=== PATIENT | male | born 1950 | race Caucasian/White ===

== ENCOUNTER 2019-03-08 12:17 | Inpatient (IN) | payer MEDICARE, BC ==
[~2019-03-08] VITALS: Ht 182.9 cm; Wt 114.0 kg
[2019-03-08 13:24] LABS: BASOPHILS ABSOLUTE AUTO 0.02 K/mm3 (0.00-0.23); BASOPHILS PERCENT AUTO 0 % (0-2); EOSINOPHILS PERCENT AUTO 2 % (0-6); Hematocrit 40.8 % (37.0-53.0); Hemoglobin 12.2 g/dL (13.5-17.5); IMMATURE GRAN ABSOLUTE AUTO 0.01 K/mm3 (0.00-0.10); IMMATURE GRAN PERCENT AUTO 0 % (0-1); LYMPHOCYTES ABSOLUTE AUTO 1.04 K/mm3 (0.84-5.20); LYMPHOCYTES PERCENT AUTO 17 % (21-46); MONOCYTES ABSOLUTE AUTO 0.53 K/mm3 (0.16-1.47); MONOCYTES PERCENT AUTO 9 % (4-13); Mean Corpuscular HGB 32.7 pg (26.0-34.0); Mean Corpuscular HGB Conc 29.9 g/dL (31.5-36.5); Mean Corpuscular Volume 109 fL (80-100); NEUTROPHILS ABSOLUTE AUTO 4.44 K/mm3 (1.96-9.15); NEUTROPHILS PERCENT AUTO 72 % (41-73); Platelet Count 127 K/mm3 (150-400); RDW Coefficient Variation 14.3 % (11.7-14.2); RDW Standard Deviation 57.9 fL (35.1-46.3); Red Blood Cell Count 3.73 M/mm3 (4.30-5.90); White Blood Cell Count 6.14 K/mm3 (4.00-11.30)
[2019-03-08] MEDS ORDERED: ALBU90OI INH (13:41)
[2019-03-08] MEDS ORDERED: ALPR.5 PO (13:41)
[2019-03-08] MEDS ORDERED: DULERA 200 MCG/13 GM INH (13:41)
[2019-03-08] MEDS ORDERED: Aspirin EC81 MG PO (13:42)
[2019-03-08] MEDS ORDERED: FUROSEMIDE PO (13:42)
[2019-03-08 13:46] LABS: Troponin I 0.024 ng/mL (0.000-0.040)
[2019-03-08 13:50] LABS: Alanine Aminotransfer (ALT/SGP 28 U/L (12-78); Albumin, Blood 3.5 g/dL (3.4-5.0); Alk Phos 59 U/L (50-136); Aspartate Aminotrans (AST/SGOT 25 U/L (12-37); Bilirubin, Total 0.4 mg/dL (0.1-1.0); Blood Urea Nitrogen 23 mg/dL (8-24); Bun/Creatinine Ratio 21.3 (12.0-20.0); Chloride, Blood 93 mmol/L (98-108); Creatinine, Blood 1.08 mg/dL (0.60-1.20); Globulin, Blood 3.6 g/dL (2.2-4.0); Glomerular Filtration Rate >60 (60-); Glucose, Blood 85 mg/dL (70-99); Potassium, Blood 4.6 mmol/L (3.5-5.5); Sodium, Blood 139 mmol/L (136-145); Total Protein, Blood 7.1 g/dL (6.4-8.2)
[2019-03-08 13:52] LABS: Anion Gap Unable to Calculate mmol/L (6-16)
[2019-03-08 13:53] LABS: CO2, Blood >45 mmol/L (21-32)
[2019-03-08] MEDS ORDERED: Prinivil10 MG PO (14:23)
[2019-03-08] MEDS ORDERED: Voltaren100 GM TOP (14:23)
[2019-03-08] MEDS ORDERED: QUIN5 PO (14:49)
[2019-03-08] MEDS ORDERED: ALBU2.5V5 NEB (14:52)
[2019-03-08] MEDS ORDERED: Percocet 10-321 EACH PO (15:46)
[2019-03-08 16:35] LABS: PO2 Arterial 65.4 mmHg (80-100); pH Blood Arterial 7.32 (7.35-7.45)
[2019-03-08 16:36] LABS: PCO2 Arterial 90.4 mmHg (35-45)
--- NOTE | 2019-03-08 21:25 | NUR ---
Report recieved from RORO Farris at [id number].
--- NOTE | 2019-03-09 02:07 | NUR ---
Pt admitted to PCU 3 at 2138 via [facility] from ED with Brenton RN at bedside. Pt alert and oriented, responds to questions appropriately, with pt. Pt transferred from [facility] to bed as SBA, minimal assistanced needed. Pt stated GARCIAS and increased SOB with ambulation. Pt appeared with initial weak gait that improved. See admission assessment for detailed systems assessment. BIPAP in place and pt tolerating well. Currently sleeping at this time. Will continue to monitor. Call light in reach. Able to make needs known.
[2019-03-09 04:24] LABS: BASOPHILS ABSOLUTE AUTO 0.03 K/mm3 (0.00-0.23); BASOPHILS PERCENT AUTO 1 % (0-2); EOSINOPHILS ABSOLUTE AUTO 0.12 K/mm3 (0.00-0.68); EOSINOPHILS PERCENT AUTO 2 % (0-6); Hematocrit 39.9 % (37.0-53.0); Hemoglobin 11.9 g/dL (13.5-17.5); IMMATURE GRAN PERCENT AUTO 0 % (0-1); LYMPHOCYTES ABSOLUTE AUTO 1.28 K/mm3 (0.84-5.20); LYMPHOCYTES PERCENT AUTO 22 % (21-46); MONOCYTES ABSOLUTE AUTO 0.57 K/mm3 (0.16-1.47); MONOCYTES PERCENT AUTO 10 % (4-13); Mean Corpuscular HGB 32.3 pg (26.0-34.0); Mean Corpuscular HGB Conc 29.8 g/dL (31.5-36.5); Mean Corpuscular Volume 108 fL (80-100); Mean Platelet Volume 9.9 fL (9.1-12.4); NEUTROPHILS ABSOLUTE AUTO 3.96 K/mm3 (1.96-9.15); NEUTROPHILS PERCENT AUTO 66 % (41-73); Platelet Count 114 K/mm3 (150-400); RDW Coefficient Variation 14.2 % (11.7-14.2); RDW Standard Deviation 56.8 fL (35.1-46.3); Red Blood Cell Count 3.68 M/mm3 (4.30-5.90); White Blood Cell Count 5.96 K/mm3 (4.00-11.30)
[2019-03-09 04:42] LABS: Blood Urea Nitrogen 26 mg/dL (8-24); Bun/Creatinine Ratio 20.2 (12.0-20.0); Chloride, Blood 94 mmol/L (98-108); Creatinine, Blood 1.29 mg/dL (0.60-1.20); Glomerular Filtration Rate 58 (60-); Glucose, Blood 87 mg/dL (70-99); Magnesium, Blood 2.6 mg/dL (1.6-2.4); Potassium, Blood 3.8 mmol/L (3.5-5.5); Sodium, Blood 139 mmol/L (136-145)
[2019-03-09 04:50] LABS: Anion Gap Unable to Calculate mmol/L (6-16); CO2, Blood >45 mmol/L (21-32)
[2019-03-09 06:02] LABS: PCO2 Arterial 92.1 mmHg (35-45); PO2 Arterial 81.7 mmHg (80-100)
--- NOTE | 2019-03-09 06:12 | NUR ---
CRITICAL VALUE Critical co2 of 92.1 at 0605. Called MD Gaines at 0607. Placed pt back on BIPAP. No changes in mentation noted. awaiting call back from Dr. Gaines at this time.
--- NOTE | 2019-03-09 06:30 | NUR ---
Shift Summary Pt with VSS this shift, pt placed on BIPAP at approx 2230 and was compliant with BIPAP until approx 0245. Education provided to pt regarding BIPAP treatment and retention of CO2. pt declined BIPAP and placed on 3L NC. ABG drawn and with critical results valued. No changes in mentation from time of arrival on unit. Pt remains alert and oriented, but with sporatic movements and thought processes. Saigal notified and made aware, BIPAP placed back on pt with further education given, repeat ABG to be drawn in 1 hour. Pt able to amb to bathroom with SBA. Afib rate controlled in the 110's, no need for further rate control medications this shift. Will continue to monitor and update as needed.
[2019-03-09 08:22] LABS: PCO2 Arterial 77 mmHg (35-45); PO2 Arterial 72 mmHg (80-100); pH Blood Arterial 7.37 (7.35-7.45)
--- NOTE | 2019-03-09 18:40 | NUR ---
END OF SHIFT; PT RESTED COMFORTABLY USING BIPAP FOR MAJORITY OF SHIFT. DID NOT EAT LUNCH TODAY BUT DID WAKE FOR DINNER. HE HAD PLEASANT AFFECT FOR MOST OF THE DAY. BECOMING ANGRY DURING DINNER AND YELLING AT STAFF. PT DID NOT REMEMBER SLEEPING MOST OF DAY AND TOLD STAFF THAT HE HAD BEEN AWAKE AND NO ONE HAD BEEN IN HIS ROOM. THIS RN TRIED TO EXPLAIN TO PATIENT THAT HE WAS ASLEEP BUT HE WOULD NOT BELIEVE HER. PT BECOMES INCREASINGLY ANGRY AND TOWER CLIMBER CHASTITY GOES TO ROOM TO SPEAK WITH PATIENT. THIS RN IS ABLE TO GIVE PATIENT HIS OXYCODONE AND HIS XARELTO AFTER EXPLAINING TO PT ABOUT THE REASON FOR XARELTO USE. PT IS CURRENTLY LAYING ON BED USING NASAL CANNULA THIS RN WILL CONTINUE TO MONITOR THIS PATIENT UNTIL REPORT AND HAND OFF TO NOC SHIFT RN.
--- NOTE | 2019-03-10 00:35 | NUR ---
Assumed care approx 1914. Pt off BIPAP at time of shift change. This RN sat with Pt and educated pt on need for continued BIPAP treatment. This RN explained to pt that BIPAP is improving co2 retention. Pt stated understanding and compliantly placed BIPAP back on. Pt has been on BIPAP since approx 2129. Pt has been sleeping this shift. VSS. No apparent sign of distress. Pt mentating more clearly than previous night. Pt states "I don't feel fuzzy in the head anymore". Alert and oriented, answering questions appropriately. Pt is following commands and instructions compliantly this shift. See shift assessment for detailed assessment. Will continue to monitor. Pain within proportion at this time.
--- NOTE | 2019-03-10 01:18 | NUR ---
Pt off BIPAP at 0115 for break. Back on NC.
[2019-03-10 05:28] LABS: PCO2 Arterial 64.9 mmHg (35-45); pH Blood Arterial 7.42 (7.35-7.45)
[2019-03-10 05:32] LABS: BASOPHILS ABSOLUTE AUTO 0.01 K/mm3 (0.00-0.23); BASOPHILS PERCENT AUTO 0 % (0-2); EOSINOPHILS ABSOLUTE AUTO 0.12 K/mm3 (0.00-0.68); EOSINOPHILS PERCENT AUTO 2 % (0-6); Hematocrit 39.7 % (37.0-53.0); Hemoglobin 12.1 g/dL (13.5-17.5); IMMATURE GRAN ABSOLUTE AUTO 0.01 K/mm3 (0.00-0.10); IMMATURE GRAN PERCENT AUTO 0 % (0-1); LYMPHOCYTES ABSOLUTE AUTO 1.16 K/mm3 (0.84-5.20); LYMPHOCYTES PERCENT AUTO 20 % (21-46); MONOCYTES ABSOLUTE AUTO 0.43 K/mm3 (0.16-1.47); MONOCYTES PERCENT AUTO 8 % (4-13); Mean Corpuscular HGB 32.2 pg (26.0-34.0); Mean Corpuscular HGB Conc 30.5 g/dL (31.5-36.5); Mean Corpuscular Volume 106 fL (80-100); Mean Platelet Volume 9.8 fL (9.1-12.4); NEUTROPHILS ABSOLUTE AUTO 4.03 K/mm3 (1.96-9.15); NEUTROPHILS PERCENT AUTO 70 % (41-73); Platelet Count 126 K/mm3 (150-400); RDW Coefficient Variation 14.1 % (11.7-14.2); RDW Standard Deviation 54.7 fL (35.1-46.3); Red Blood Cell Count 3.76 M/mm3 (4.30-5.90); White Blood Cell Count 5.76 K/mm3 (4.00-11.30)
[2019-03-10 05:57] LABS: Albumin, Blood 3.2 g/dL (3.4-5.0); Anion Gap 1 mmol/L (6-16); Blood Urea Nitrogen 26 mg/dL (8-24); Bun/Creatinine Ratio 22.6 (12.0-20.0); CO2, Blood 42 mmol/L (21-32); Calcium, Blood 9.2 mg/dL (8.5-10.1); Chloride, Blood 96 mmol/L (98-108); Creatinine, Blood 1.15 mg/dL (0.60-1.20); Glomerular Filtration Rate >60 (60-); Glucose, Blood 84 mg/dL (70-99); Phosphorus, Blood 3.8 mg/dL (2.5-4.9); Potassium, Blood 4.1 mmol/L (3.5-5.5); Sodium, Blood 139 mmol/L (136-145)
--- NOTE | 2019-03-10 06:12 | NUR ---
Shift Summary Pt with no acute changes this shift. VSS. Denies SOB, denies CP/pressure. Pt wore BIPAP for approx 7 hours thus far this shift. ABG improved. Pt asleep throughout much of this shift. Up to bathroom twice with minimal assistance. Uses call light appropriately. No events on tele.
--- NOTE | 2019-03-10 11:19 | NUR ---
ECHOCARDIOGRAM COMPLETED
--- NOTE | 2019-03-10 18:18 | NUR ---
END OF SHIFT; PT COOPERATIVE WITH CARE TODAY. SLEEP STUDY ORDERED FOR TONIGHT. NO BIPAP. PT HAS PLEASANAT AFFECT TODAY AND CO2 PER ABG IS MUCH REDUCED INTO THE 67 RANGE. HE IS ABLE TO AMBULATE TO BATHROOM WITHOUT ASSIST. ONLY NEEDS HELP UNHOOKING LIINES AND MONITOR OR BIPAP. SPOUSE AT BEDSIDE TODAY. ADMITS TO GIVING PATIENT A XANAX YESTERDAY AND EXPRESSES THAT IS WHY HE WAS SO SOMNOLENT. TEACHING IS DONE AND NOTIFIED OF EVENT FROM YESTERDAY. PT STATES HIS LEGS ARE NOT NUMB NOW AND HAVE NOT HAD THIS MUCH FEELING FOR A LONG TIME. HE USES BIPAP DURING DAY FOR SHORT PERIODS OF TIME. ECHO DONE AND ULTRASOUND IS DONE FOR DVT'S WITH NO DVT'S FOUND PER TECH. WILL CONTINUE TO MONITOR THIS PATIENT UNTIL REPORT AND HAND OFF TO NOC SHIFT RN.
--- NOTE | 2019-03-11 03:35 | NUR ---
SLEEP STUDY IN PROGRESS PT AWAKE, WEARING 3L NC. BIPAP AT BEDSIDE, NOT BEING USED FOR SLEEP STUDY. PT STOOD AT BEDSIDE FOR URINAL USE W/ DESAT TO 84%. PT SITTING UP AT EDGE OF BED DEEP BREATHING W/ RETURN TO SPO2 > 92%. PT ASSISTED BACK TO LAYING POSITION. BLE ELEVATED IN BED. WILL CONTINUE TO MONITOR AND PROVIDE CARE.
[2019-03-11 05:18] LABS: PO2 Arterial 69.9 mmHg (80-100); pH Blood Arterial 7.31 (7.35-7.45)
[2019-03-11 05:19] LABS: PCO2 Arterial 74.6 mmHg (35-45)
--- NOTE | 2019-03-11 05:29 | NUR ---
SHIFT SUMMARY PT A&O X4, CALM AND COOPERATIVE. PT WEARING 3L NC FOR SLEEP STUDY THIS SHIFT. SLEEP STUDY & ABG DRAW BY RT NOW COMPLETE. PT PLACED ON BIPAP FIO2 30%. MONITOR SHOWS AFIB W/ BBB, HR 110-130, AVERAGING HR 110'S. WILL CONTINUE TO MONITOR AND PROVIDE CARE UNTIL REPORT OFF TO DAY SHIFT RN.
[2019-03-11 06:05] LABS: BASOPHILS ABSOLUTE AUTO 0.02 K/mm3 (0.00-0.23); BASOPHILS PERCENT AUTO 0 % (0-2); EOSINOPHILS ABSOLUTE AUTO 0.12 K/mm3 (0.00-0.68); EOSINOPHILS PERCENT AUTO 2 % (0-6); Hematocrit 42.1 % (37.0-53.0); Hemoglobin 13.1 g/dL (13.5-17.5); IMMATURE GRAN ABSOLUTE AUTO 0.01 K/mm3 (0.00-0.10); IMMATURE GRAN PERCENT AUTO 0 % (0-1); LYMPHOCYTES ABSOLUTE AUTO 0.95 K/mm3 (0.84-5.20); LYMPHOCYTES PERCENT AUTO 13 % (21-46); MONOCYTES ABSOLUTE AUTO 0.47 K/mm3 (0.16-1.47); MONOCYTES PERCENT AUTO 6 % (4-13); Mean Corpuscular HGB 32.7 pg (26.0-34.0); Mean Corpuscular HGB Conc 31.1 g/dL (31.5-36.5); Mean Corpuscular Volume 105 fL (80-100); Mean Platelet Volume 9.9 fL (9.1-12.4); NEUTROPHILS ABSOLUTE AUTO 5.89 K/mm3 (1.96-9.15); NEUTROPHILS PERCENT AUTO 79 % (41-73); Platelet Count 134 K/mm3 (150-400); RDW Coefficient Variation 14.2 % (11.7-14.2); RDW Standard Deviation 54.9 fL (35.1-46.3); Red Blood Cell Count 4.01 M/mm3 (4.30-5.90); White Blood Cell Count 7.46 K/mm3 (4.00-11.30)
[2019-03-11 06:34] LABS: Albumin, Blood 3.6 g/dL (3.4-5.0); Anion Gap 3 mmol/L (6-16); Blood Urea Nitrogen 26 mg/dL (8-24); Bun/Creatinine Ratio 22.6 (12.0-20.0); CO2, Blood 38 mmol/L (21-32); Calcium, Blood 9.5 mg/dL (8.5-10.1); Chloride, Blood 100 mmol/L (98-108); Creatinine, Blood 1.15 mg/dL (0.60-1.20); Glomerular Filtration Rate >60 (60-); Glucose, Blood 87 mg/dL (70-99); Phosphorus, Blood 4.2 mg/dL (2.5-4.9); Potassium, Blood 4.2 mmol/L (3.5-5.5); Sodium, Blood 141 mmol/L (136-145)
--- NOTE | 2019-03-11 08:15 | NUR ---
PT PLEASANT COOP A/O. DENIES PAIN. RESP EASY, UNLABORED. ON 15 L HI FLOW N.C. TALKING MUCH. ENCOURAGED TO REST AND TALK LESS. H/R REG, NO MURMER NOTED. PER TELE: NSR AT 63. LUNGS LIGHTLY WHEEZY EXPIRATION. ON 15 L HI FLOW N/C. REWP EASY, UNLABORED. BT X4 LAST BM YEST. VOIDS PER URINAL. BED IN LOW POSITION, CALL LITE IN REACH, CALLS APPROP
--- NOTE | 2019-03-11 09:00 | NUR ---
TELE CALLED. STATES PT BEEN CREEPING UP H/R. WAS 120'S NOW 135-140. HAS BEEN SLOWLY GOING UP SINCE 8AM. MEDICATING SOON. WILL CONTINUE MONITOR
--- NOTE | 2019-03-11 10:30 | NUR ---
DR WEBBER NOTIFIED US TO PLACE BIPAP AGAIN. PT AGREED. RT CALLED TO REFIT MASK. DONE.
--- NOTE | 2019-03-11 10:39 | NUR ---
PT BACK TO LOW 120'S
--- NOTE | 2019-03-11 11:36 | NUR ---
CARDIAC CONSULT CALLED IN TO DR POWELL.
[2019-03-11 11:57] LABS: CHOL/HDL RATIO 3.1; Cholesterol 161 mg/dL (50-200); HDL Cholesterol 52 mg/dL (>39); LDL/HDL RATIO 1.7; Low Density Lipoprotein Chol 88 mg/dL (0-110); Triglycerides 106 mg/dL (30-160); Very Low Density Lipoprot Chol 21 mg/dL (6-32)
--- NOTE | 2019-03-11 19:18 | NUR ---
PT QUITE PLEASANT TODAY. CARDIAC DR INCREASED AND CHANGED SOME MEDS TO DAY. BEEN ON BIPAP MUCH OF DAY. ON 3L O3 N/C TO EAT ETC. NO OTHER CONCERNS AT THIS TIME. BED IN LOW POSITION, CALL LITE IN REACH, CALLS APPRIOP
[2019-03-12 04:09] LABS: BASOPHILS ABSOLUTE AUTO 0.02 K/mm3 (0.00-0.23); BASOPHILS PERCENT AUTO 0 % (0-2); EOSINOPHILS ABSOLUTE AUTO 0.12 K/mm3 (0.00-0.68); EOSINOPHILS PERCENT AUTO 2 % (0-6); Hematocrit 39.8 % (37.0-53.0); Hemoglobin 12.4 g/dL (13.5-17.5); IMMATURE GRAN ABSOLUTE AUTO 0.01 K/mm3 (0.00-0.10); IMMATURE GRAN PERCENT AUTO 0 % (0-1); LYMPHOCYTES ABSOLUTE AUTO 1.13 K/mm3 (0.84-5.20); LYMPHOCYTES PERCENT AUTO 20 % (21-46); MONOCYTES ABSOLUTE AUTO 0.53 K/mm3 (0.16-1.47); MONOCYTES PERCENT AUTO 9 % (4-13); Mean Corpuscular HGB 32.9 pg (26.0-34.0); Mean Corpuscular HGB Conc 31.2 g/dL (31.5-36.5); Mean Corpuscular Volume 106 fL (80-100); Mean Platelet Volume 9.7 fL (9.1-12.4); NEUTROPHILS ABSOLUTE AUTO 3.95 K/mm3 (1.96-9.15); NEUTROPHILS PERCENT AUTO 69 % (41-73); Platelet Count 128 K/mm3 (150-400); RDW Coefficient Variation 14.3 % (11.7-14.2); RDW Standard Deviation 55.5 fL (35.1-46.3); Red Blood Cell Count 3.77 M/mm3 (4.30-5.90); White Blood Cell Count 5.76 K/mm3 (4.00-11.30)
[2019-03-12 04:37] LABS: Albumin, Blood 3.1 g/dL (3.4-5.0); Anion Gap 3 mmol/L (6-16); Blood Urea Nitrogen 25 mg/dL (8-24); Bun/Creatinine Ratio 23.1 (12.0-20.0); CO2, Blood 39 mmol/L (21-32); Calcium, Blood 9.2 mg/dL (8.5-10.1); Chloride, Blood 100 mmol/L (98-108); Creatinine, Blood 1.08 mg/dL (0.60-1.20); Glomerular Filtration Rate >60 (60-); Glucose, Blood 81 mg/dL (70-99); Phosphorus, Blood 4.2 mg/dL (2.5-4.9); Potassium, Blood 3.9 mmol/L (3.5-5.5); Sodium, Blood 142 mmol/L (136-145)
--- NOTE | 2019-03-12 05:17 | NUR ---
SHIFT SUMMARY PT A&O X4. PT IN BED WEARING BIPAP MAJORITY OF NIGHT, 3L NC WHEN NOT WEARING BIPAP. MONITOR SHOWS AFIB, HR 100-130. VSS. WILL CONTINUE TO MONITOR AND PROVIDE CARE UNTIL REPORT OFF TO DAY SHIFT RN.
[2019-03-12 05:30] LABS: PCO2 Arterial 66.5 mmHg (35-45); PO2 Arterial 66.7 mmHg (80-100)
--- NOTE | 2019-03-12 07:52 | NUR ---
AM NOTE. ASSUMED CARE OF PT APROX 0700. PT WAS ADMITTED FOR AFIB RVR AND RESP FAILURE ON BIPAP AND NC. PT IS A&Ox4 AND SBA TO THE SIDE OF THE BED TO VOID. PT IS ON NC AT 3 L WITH O2 IN THE 90'S. PT IS BEING DIG LOADED AND IS ON HIS LAST DOSE OF DIG THIS AM. PT IS TAKING PO CARDIZEM FOR RATE CONTROL WELL. PT'S VS STABLE AT THIS TIME. PT'S L/S DIM T/O. PT'S BLE ARE RED,WARM TO TOUCH WITH 1+ PITTING EDEMA NOTED. CALL LIGHT IN REACH, BED IS LOCKED AND LOW WILL CONTINUE TO MONITOR.
--- NOTE | 2019-03-12 18:31 | NUR ---
SHIFT SUMMARY. NO ACUTE CHANGES NOTED THIS SHIFT. PT HAS BEEN STABLE ON 3 L NC WITH O2 SATS >90%. PT HAS C/O OF SEVERE PAIN AND HAS BEEN MEDICATED PER EMAR WITH GOOD RESULTS. PT'S HAS BEEN AT THE BEDSIDE MOST OF THE DAY. THIS RN CALLED THE PROVIDER AND ASKED IF THE COULD BRING THE PT'S ESSENTIAL OILS FROM HOME TO HELP WITH THE PT'S ITCHING/PSORIASIS ON HIS SCALP. PROVIDER STATED HE WAS OKAY WITH THIS. NURSE NOTIFY WAS PLACED. PT'S VS HAVE BEEN STABLE T/O SHIFT. PT IS IN AFIB WITH CURRENT RATES IN THE 80'S-90'S PER BROADCAST SYSTEMS ENGINEER. PT HAS BEEN ABLE TO STAND AT THE BEDSIDE TO VOID. CALL LIGHT IN REACH, BED IS LOCKED AND LOW WILL CONTINUE TO MONITOR UNTIL REPORT IS GIVEN TO ONCOMING RN.
[2019-03-13 04:08] LABS: Anion Gap 0 mmol/L (6-16); Blood Urea Nitrogen 32 mg/dL (8-24); CO2, Blood 44 mmol/L (21-32); Chloride, Blood 96 mmol/L (98-108); Creatinine, Blood 1.23 mg/dL (0.60-1.20); Glomerular Filtration Rate >60 (60-); Glucose, Blood 84 mg/dL (70-99); Magnesium, Blood 2.1 mg/dL (1.6-2.4); Potassium, Blood 4.3 mmol/L (3.5-5.5); Sodium, Blood 140 mmol/L (136-145)
--- NOTE | 2019-03-13 06:25 | NUR ---
SHIFT SUMMARY PT HAS REMAINED AOX4 THROUGHOUT SHIFT. VSS. PLEASANT AND COOPERATIVE WITH CARE. PT CONTINUES TO USE URINAL AT BEDSIDE INDEPENDENTLY. O2 SATS HAVE REMAINED >90% ON 3L VIA NASAL CANNULA OR ON VISION BIPAP WITH SETTINGS OF 20/10 AND 30% FIO2. BIPAP REMAINED IN PLACE FOR APPROXIMATELY 4 HOURS LAST NIGHT WHILE PATIENT SLEPT. PT REPORTS THAT HOME O2 USE IS 3-4L. MEDICATED MULTIPLE TIMES FOR GENERALIZED CHRONIC PAIN THAT DECREASED WITH ORDERED MEDICATIONS. HEART RHYTHM REMAINS IN ATRIAL FIBRILLATION WITH A RATE IN THE 80'S-90'S. NO OTHER CHANGES NOTED FROM INITIAL ASSESSMENT. WILL CONTINUE TO MONITOR AND REPORT TO ONCOMING SHIFT RN. BED IN LOW POSITION, CALL LIGHT IN REACH.
--- NOTE | 2019-03-13 07:32 | NUR ---
AM NOTE. ASSUMED CARE OF PT APROX 0700, PT IS A&Ox4 AND IND TO THE BSC IN THE ROOM. PT WAS ADMITTED FOR AFIB RVR AND RESP FAILURE. CURRENTLY THE PT IS ON 3L NC WHICH IS HIS HOME DOSE. PT HAS NOT NEEDED THE BIPAP SO FAR THIS SHIFT. PT IS CURRENTLY IN AFIB IN THE 80'S-90'S PER BREWING TECHNICIAN. PT'S BP IS STABLE AT 104/68. PT'S BLE ARE RED AND WARM TO THE TOUCH WITH TRACE EDEMA NOTED, THIS HAS IMPROVED FROM YESTERDAY. L/S ARE DIM T/O, PT BECOMES SOB WITH ACTIVITY, HOWVEVER PT STATES THIS HAS IMPROVED WELL. PT DENIES ANY CHEST PAIN/PRESSURE OR N/V AT THIS TIME. CALL LIGHT IN REACH, BED IS LOCKED AND LOW WILL CONTINUE TO MONITOR.
[2019-03-13 14:49] LABS: Mean Platelet Volume 9.3 fL (9.1-12.4); Platelet Count 146 K/mm3 (150-400)
[2019-03-13 15:11] LABS: International Normalized Ratio 1.02; Prothrombin Time Results 10.8 Sec (9.7-11.5)
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
--- NOTE | 2019-03-13 18:22 | NUR ---
SHIFT SUMMARY. NO ACUTE CHANGES NOTED THIS SHIFT. PT'S VS HAVE BEEN STABLE T/O SHIFT. PT HAS BEEN STABLE ON 3L NC. PT HAS BEEN ABLE TO STAND AT THE BEDSIDE AND VOID WITH THE URINAL CLEAR YELLOW URINE. PT'S AT THE BEDSIDE MOST OF THE DAY. UPDATE ON PT'S CONDITION AND EDUCATION WAS PROVIDED TO THE PT AND ABOUT MEDICATIONS, HOME CARE, AND WHAT TO EXPECT WITH THE ANGIO THAT IS TENTATIVLY PLANNED FOR TOMORROW. PT IS TO HAVE STANDING WEIGHTS DAILY. PER DR. BOO IF PT'S WEIGHT IS STABLE TODAY AND TOMORROW PT IS ABLE TO D/C HOME AFTER ANGIO. CALL LIGHT IN REACH, BED IS LOCKED AND LOW WILL CONTINUE TO MONITOR UNTIL REPORT IS GIVEN TO ONCOMING RN.
[2019-03-14 03:53] LABS: Anion Gap 1 mmol/L (6-16); Blood Urea Nitrogen 31 mg/dL (8-24); Bun/Creatinine Ratio 26.5 (12.0-20.0); CO2, Blood 41 mmol/L (21-32); Calcium, Blood 8.5 mg/dL (8.5-10.1); Chloride, Blood 96 mmol/L (98-108); Creatinine, Blood 1.17 mg/dL (0.60-1.20); Glomerular Filtration Rate >60 (60-); Glucose, Blood 86 mg/dL (70-99); Potassium, Blood 4.3 mmol/L (3.5-5.5); Sodium, Blood 138 mmol/L (136-145)
--- NOTE | 2019-03-14 06:32 | NUR ---
SHIFT SUMMARY PT HAS REMAINED AOX4 THROUGHOUT SHIFT. VSS. PLEASANT AND COOPERATIVE WITH CARE. PT CONTINUES TO BE INDEPENDENT IN ROOM WITH URINAL USE AT BEDSIDE. O2 SATS HAVE REMAINED >90% ON 3L VIA NASAL CANNULA. PT WORE BIPAP FOR APPROXIMATELY 3 HOURS TOTAL LAST NIGHT WHILE SLEEPING. MEDICATED MULTIPLE TIMES FOR GENERALIZED PAIN THAT IS CHRONIC; REPORTS DECREASE IN PAIN WITH ORDERED MEDICATIONS. PT REMAINS IN AFIB WITH CONTROLLED RATE IN THE 80-90'S. EDUCATION PROVIDED ON ANGIOGRAM PROCEDURE- PT APPEARS TO HAVE SOME ANXIETY ABOUT PROCEDURE AND WHAT TO EXPECT. WHEN EXPLAINING POTENTIAL INTERVENTIONS THAT COULD BE UTILIZED WITH HEART CATH, PT REPORTS THAT "HE DOESN'T WANT ANY OF THAT STUFF IN HIS BODY". WHEN ASKED TO CLARIFY HIS MEANING, PT REPORTS THAT HE "DOES NOT WANT ANY STENTS, BUT MIGHT BE OK WITH A BALLOON". HEPARIN DRIP CONTINUES TO INFUSE AND IS MANAGED PER PHARMACY. PT HAS HAD ONLY SIPS OF WATER SINCE MIDNIGHT. NO OTHER CHANGES NOTED FROM INITIAL ASSESSMENT. WILL CONTINUE TO MONITOR AND REPORT TO ONCOMING SHIFT RN. BED IN LOW POSITION, CALL LIGHT IN REACH.
--- NOTE | 2019-03-14 08:54 | NUR ---
AM NOTE. ASSUMED CARE OF PT APROX 0700, PT IS A&Ox4 AND SBA/IND IN THE ROOM. PT WAS SEEN BY CARDIOLOGY PROVIDER THIS AM, CONSENT FOR ANGIO WAS SIGNED. PT STATED HE HAD CONCERNS ABOUT PLACING A CARDIAC STENT IF HE NEEDED ONE. EDUCATION WAS PROVIDED TO PT ABOUT CARDIAC STENTS, PT STATED HE WANTED TO TALK TO HIS WHEN SHE CAME IN. PT IS NPO SINCE MIDNIGHT FOR THIS PROCEDURE. PT'S HEPARIN GTT IS RUNNING AT ORDERED RATE. PT'S VS STABLE AT THIS TIME. CALL LIGHT IN REACH, BED IS LOCKED AND LOW WILL CONTINUE TO MONITOR.
--- NOTE | 2019-03-14 10:02 | NUR ---
PT UPDATE... PT HAS BEEN ON THE BSC FOR APROX 1 HOUR. PT STATED THAT HE IS CONSTIPATED AND UNABLE TO HAVE A BM AT THIS TIME. PT WAS STRAINING SO HARD HE HAD GIVEN HIMSELF A BLOODY NOSE. PT WAS EDUCATED ON NOT STRAINING SO HARD DUE TO THE HEPARIN GTT HE IS CURRENTLY ON. PT STATED HIS UNDERSTANDING. PROVIDER WAS CALLED AND ORDERS OBTAINED FOR BOWEL CARE PROTOCOL.
--- NOTE | 2019-03-14 19:10 | NUR ---
pt resting review of care with nursing will review advance care planning with pt after physican sees him tomorrow
--- NOTE | 2019-03-14 19:45 | NUR ---
ASSUMED CARE PT CARE ASSUMED AT APPROXIMATELY 1915. AOX4, VSS. PT IS RESTING WITH HOB AT APPROXIMATELY 15 DEGREES ELEVATION POST ANGIO WITH R GROIN SITE. GROIN SITE IS NOTED TO HAVE MICHAEL DRESSING WITH CLEAR OPSITE. SMALL AMOUNT OF DRY BLOOD NOTED TO CLEAR DRESSING WITH NO BLOOD NOTED ON MICHAEL DRESSING. NO BRUISING, HEMATOMA, OR SWELLING NOTED TO OR AROUND SITE. PT DENIES PAIN TO SITE AT REST OR UPON PALPATION. EDUCATION PROVIDED ON POST PROCEDURE CARE AND REDUCTION OF MOVEMENT AND STRAINING- PT VERBALIZES UNDERSTANDING. INFORMED PT THAT WE CAN DO TRIAL AMBULATION AT 1999 AND MONITOR GROIN SITE- PT AGREES TO THIS PLAN. WILL CONTINUE TO MONITOR. CALL LIGHT IN REACH.
[2019-03-15 05:07] LABS: Hematocrit 42.3 % (37.0-53.0); Hemoglobin 12.9 g/dL (13.5-17.5); Mean Corpuscular HGB 32.1 pg (26.0-34.0); Mean Corpuscular HGB Conc 30.5 g/dL (31.5-36.5); Mean Corpuscular Volume 105 fL (80-100); Mean Platelet Volume 9.7 fL (9.1-12.4); Platelet Count 141 K/mm3 (150-400); RDW Coefficient Variation 14.2 % (11.7-14.2); RDW Standard Deviation 55.1 fL (35.1-46.3); Red Blood Cell Count 4.02 M/mm3 (4.30-5.90); White Blood Cell Count 6.61 K/mm3 (4.00-11.30)
[2019-03-15 05:29] LABS: Anion Gap 0 mmol/L (6-16); Blood Urea Nitrogen 29 mg/dL (8-24); Bun/Creatinine Ratio 26.4 (12.0-20.0); CO2, Blood 44 mmol/L (21-32); Calcium, Blood 8.9 mg/dL (8.5-10.1); Chloride, Blood 96 mmol/L (98-108); Glomerular Filtration Rate >60 (60-); Glucose, Blood 82 mg/dL (70-99); Potassium, Blood 4.1 mmol/L (3.5-5.5); Sodium, Blood 140 mmol/L (136-145)
--- NOTE | 2019-03-15 05:42 | NUR ---
SHIFT SUMMARY PT HAS REMAINED AOX4 THROUGHOUT SHIFT. VSS. PLEASANT AND COOPERATIVE WITH CARE. O2 SATS HAVE REMAINED >90% ON 3L VIA NASAL CANNULA OR ON VISION BIPAP @30% FIO2. PT CONTINUES TO AMBULATE WITH STANDBY ASSIST TO USE URINAL AT BEDSIDE. GROIN SITE HAS REMAINED UNCHANGED SINCE START OF SHIFT. EDUCATION ABOUT POST PROCEDURE MOVEMENT REITERATED AND PT CONTINUES TO ADHERE. SOME REDNESS AND SKIN CHAFING NOTED TO CHERELLE AREA NEAR SCROTUM; PT STATES THIS IS ITCHING, BUT ITCH DECREASED WITH APPLICATION OF BARRIER CREAM. NO OTHER CHANGES NOTED FROM INITIAL ASSESSMENT. WILL CONTINUE TO MONITOR AND REPORT TO ONCOMING SHIFT RN. BED IN LOW POSITION, CALL LIGHT IN REACH.
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
[2019-03-15] MEDS ORDERED: ATORVASTATIN CA20 MG PO (12:35)
[2019-03-15] MEDS ORDERED: DILTIAZEM 24HR120 M1 PO (12:36)
[2019-03-15] MEDS ORDERED: METO2.5 PO (12:37)
[2019-03-15] MEDS ORDERED: METO50ER PO (12:37)
[2019-03-15] MEDS ORDERED: XARELTO20 MG PO (12:38)
--- NOTE | 2019-03-15 15:30 | NUR ---
DISCHARGE ORDERS PROVIDED TO PT AND . EDUCATION PROVIDED ABOUT MEDICATIONS, DISCHARGE INSTRUCTIONS, AND O2 USE. LINCAIRE IN TO INFORM PT HOW TO USE TRILOGY. ALL QUESTIONS ANSWERED. PT TAKEN OUT BY WHEELCHAIR.
== END 2019-03-15 15:38 | disposition home or self-care (01) | DRG 286 ==
LOC: ER 12:17 → PCU 15:46 → ERHOLD 15:46 → PCU 21:46
PROVIDERS: Emergency Medicine; Family Medicine; Hospitalist; Internal Medicine Interventional Cardiology; Nurse Practitioner Acute Care; ADMIT Internal Medicine
PROC: 5A09457 Assistance with Respiratory Ventilation, 24-96 Consecutive Hours, Continuous Positive Airway Pressure (ICD-10-PCS; principal; 2019-03-08)
PROC: B205YZZ Plain Radiography of Left Heart using Other Contrast (ICD-10-PCS; 2019-03-14)
PROC: 4A023N8 Measurement of Cardiac Sampling and Pressure, Bilateral, Percutaneous Approach (ICD-10-PCS; 2019-03-14)
DX: I11.0 Hypertensive heart disease with heart failure (principal); I50.21 Acute systolic (congestive) heart failure; J96.22 Acute and chronic respiratory failure with hypercapnia; J96.21 Acute and chronic respiratory failure with hypoxia; J44.1 Chronic obstructive pulmonary disease with (acute) exacerbation; N17.9 Acute kidney failure, unspecified; E87.2 Acidosis; I65.21 Occlusion and stenosis of right carotid artery; I48.91 Unspecified atrial fibrillation; Z99.81 Dependence on supplemental oxygen; M54.5 Low back pain; G89.29 Other chronic pain; I27.20 Pulmonary hypertension, unspecified; E66.01 Morbid (severe) obesity due to excess calories; Z68.34 Body mass index [BMI] 34.0-34.9, adult; Z91.19 Patient's noncompliance with other medical treatment and regimen; F41.1 Generalized anxiety disorder; F17.210 Nicotine dependence, cigarettes, uncomplicated; G47.33 Obstructive sleep apnea (adult) (pediatric); K59.00 Constipation, unspecified
CPT/HCPCS: 36415; 36600; 71046; 80048; 80053; 80061; 80069; 82803; 83735; 83880; 84443; 84484; 85025; 85027; 85049; 85610; 85730; 93005; 93010; 93306; 93460; 93970; 94640; 94660; 94761; 94762; 96374; 96375; 96376; 99152; 99153; 99285-25; C1760; C1769; J1120; J1160; J1644; J1940; J2250; J3010; J7030; J7050; Q9967

== ENCOUNTER 2020-06-10 00:35 | Day surgery (SDC) | payer MEDICARE, BC ==
[~2020-06-10 00:35] MED LIST: ALBU2.5V5 NEB; ALBU90OI INH; ALPR.5 PO; ATORVASTATIN CA20 MG PO; Aspirin EC81 MG PO; DILTIAZEM 24HR120 M1 PO; DULERA 200 MCG/13 GM INH; FUROSEMIDE PO; METO2.5 PO; METO50ER PO; Percocet 10-321 EACH PO; Prinivil10 MG PO; QUIN5 PO; Voltaren100 GM TOP; XARELTO20 MG PO
== END 2020-06-10 23:30 | disposition home or self-care (01) ==
LOC: WOUND 00:35
DX: I87.2 Venous insufficiency (chronic) (peripheral) (principal); I73.9 Peripheral vascular disease, unspecified; I50.9 Heart failure, unspecified; E78.5 Hyperlipidemia, unspecified; I25.10 Atherosclerotic heart disease of native coronary artery without angina pectoris; F17.210 Nicotine dependence, cigarettes, uncomplicated; Z88.0 Allergy status to penicillin; Z79.899 Other long term (current) drug therapy
CPT/HCPCS: G0463

== ENCOUNTER 2020-06-17 00:32 | Day surgery (SDC) | payer MEDICARE, BC | END 2020-06-17 23:08 | disposition home or self-care (01) | LOC: WOUND 00:32 | DX: I87.2 Venous insufficiency (chronic) (peripheral) (principal); I73.9 Peripheral vascular disease, unspecified; L97.821 Non-pressure chronic ulcer of other part of left lower leg limited to breakdown of skin; I50.9 Heart failure, unspecified; E78.5 Hyperlipidemia, unspecified; Z79.899 Other long term (current) drug therapy | CPT/HCPCS: G0463 ==

== ENCOUNTER 2020-07-02 08:38 | Day surgery (SDC) | payer MEDICARE, BC | END 2020-07-02 12:00 | disposition home or self-care (01) | LOC: WOUND 08:38 | DX: L97.811 Non-pressure chronic ulcer of other part of right lower leg limited to breakdown of skin (principal); S01.80XD Unspecified open wound of other part of head, subsequent encounter; S01.00XD Unspecified open wound of scalp, subsequent encounter; I87.2 Venous insufficiency (chronic) (peripheral); I50.9 Heart failure, unspecified; I48.91 Unspecified atrial fibrillation; E78.5 Hyperlipidemia, unspecified; G89.29 Other chronic pain; M54.5 Low back pain; I25.10 Atherosclerotic heart disease of native coronary artery without angina pectoris; I49.9 Cardiac arrhythmia, unspecified; Z88.0 Allergy status to penicillin; Z79.82 Long term (current) use of aspirin; Z79.01 Long term (current) use of anticoagulants; Z79.899 Other long term (current) drug therapy; Z51.5 Encounter for palliative care; X58.XXXD Exposure to other specified factors, subsequent encounter | CPT/HCPCS: G0463 ==

== ENCOUNTER 2020-07-09 02:06 | Day surgery (SDC) | payer MEDICARE, BC | END 2020-07-09 23:13 | disposition home or self-care (01) | LOC: WOUND 02:06 | DX: R60.0 Localized edema (principal); L97.819 Non-pressure chronic ulcer of other part of right lower leg with unspecified severity; L98.499 Non-pressure chronic ulcer of skin of other sites with unspecified severity; I87.2 Venous insufficiency (chronic) (peripheral); I73.9 Peripheral vascular disease, unspecified; I11.0 Hypertensive heart disease with heart failure; I50.20 Unspecified systolic (congestive) heart failure; E78.5 Hyperlipidemia, unspecified; G89.29 Other chronic pain; M54.5 Low back pain; I25.10 Atherosclerotic heart disease of native coronary artery without angina pectoris; I42.9 Cardiomyopathy, unspecified; F41.9 Anxiety disorder, unspecified; I48.0 Paroxysmal atrial fibrillation; F17.210 Nicotine dependence, cigarettes, uncomplicated; Z79.51 Long term (current) use of inhaled steroids; Z79.01 Long term (current) use of anticoagulants; Z79.82 Long term (current) use of aspirin; Z79.899 Other long term (current) drug therapy; Z88.0 Allergy status to penicillin; Z51.5 Encounter for palliative care | CPT/HCPCS: G0463 ==

== ENCOUNTER 2020-11-29 10:15 | Day surgery (SDC) | payer MEDICARE, BC | END 2020-11-29 22:49 | disposition home or self-care (01) | LOC: WOUND 10:15 | DX: L97.822 Non-pressure chronic ulcer of other part of left lower leg with fat layer exposed (principal); I87.2 Venous insufficiency (chronic) (peripheral); I50.9 Heart failure, unspecified; E78.5 Hyperlipidemia, unspecified; I48.91 Unspecified atrial fibrillation; I25.10 Atherosclerotic heart disease of native coronary artery without angina pectoris; F17.200 Nicotine dependence, unspecified, uncomplicated; Z88.0 Allergy status to penicillin | CPT/HCPCS: G0463 ==

== ENCOUNTER 2020-12-06 00:38 | Day surgery (SDC) | payer MEDICARE, BC | END 2020-12-06 22:53 | disposition home or self-care (01) | LOC: WOUND 00:38 | DX: R60.9 Edema, unspecified (principal); I87.2 Venous insufficiency (chronic) (peripheral); L97.922 Non-pressure chronic ulcer of unspecified part of left lower leg with fat layer exposed; I48.91 Unspecified atrial fibrillation; E78.5 Hyperlipidemia, unspecified; I25.10 Atherosclerotic heart disease of native coronary artery without angina pectoris; I50.9 Heart failure, unspecified; I51.7 Cardiomegaly; I35.0 Nonrheumatic aortic (valve) stenosis | CPT/HCPCS: 93306; A9270; G0463 ==

== ENCOUNTER 2023-01-13 12:26 | Inpatient (IN) | payer MEDICARE, BC ==
[~2023-01-13] VITALS: Ht 182.9 cm; Wt 102.8 kg
[2023-01-13] VITALS (29 sets, daily range): BP systolic 92–133; BP diastolic 57–102
[2023-01-13 12:59] LABS: PO2 Arterial 73.2 mmHg (80-100); pH Blood Arterial 7.36 (7.35-7.45)
[2023-01-13 13:01] LABS: PCO2 Arterial 78.5 mmHg (35-45)
[2023-01-13 13:56] LABS: Alanine Aminotransfer (ALT/SGP 8 U/L (12-78); Albumin, Blood 0.9 g/dL (3.4-5.0); Albumin/Globulin Ratio 0.6 (0.8-1.8); Alk Phos 16 U/L (50-136); Anion Gap 1 mmol/L (6-16); Aspartate Aminotrans (AST/SGOT 8 U/L (12-37); Bilirubin, Total 0.2 mg/dL (0.1-1.0); Blood Urea Nitrogen 8 mg/dL (8-24); Bun/Creatinine Ratio 28.5 (12.0-20.0); CO2, Blood 18 mmol/L (21-32); Calcium, Blood <5.0 mg/dL (8.5-10.1); Chloride, Blood 136 mmol/L (98-108); Creatinine, Blood 0.28 mg/dL (0.60-1.20); Globulin, Blood 1.4 g/dL (2.2-4.0); Glomerular Filtration Rate 128 (60-); Glucose, Blood 56 mg/dL (70-99); Magnesium, Blood 2.5 mg/dL (1.6-2.4); Potassium, Blood 1.7 mmol/L (3.5-5.5); Sodium, Blood 155 mmol/L (136-145); Total Protein, Blood 2.3 g/dL (6.4-8.2)
[2023-01-13 14:20] LABS: Calcium, Ionized (POC) 1.13 mmol/L (1.10-1.46); Chloride (POC) 96 mmol/L (98-108); Creatinine (POC) 0.9 mg/dL (0.8-1.3); Glucose (ISTAT POC) 114 mg/dL (70-99); Hemoglobin (POC) 10.2 g/dL (13.5-17.5); Sodium (POC) 145 mmol/L (135-148); Total CO2 (POC) 39 mmol/L (21-32)
[2023-01-13 14:40] LABS: Influenza A, PCR NEGATIVE (NEGATIVE); Influenza B, PCR NEGATIVE (NEGATIVE); Resp Syncytial Virus, PCR NEGATIVE (NEGATIVE); SARS-Cov-2 (COVID-19) PCR, MMC NEGATIVE (NEGATIVE)
[2023-01-13 15:19] LABS: Source, Urine Foley catheter
[2023-01-13 15:24] LABS: Appearance, Urine Clear (Clear); Bilirubin, Urine Neg (Neg); Blood, Urine 1+ (Neg); Color, Urine Amber (P-Yellow); Glucose Qualitative, Urine Neg (Neg); Ketones, Urine Neg (Neg); Leukocyte Esterase, Urine Neg (Neg); Nitrite, Urine Neg (Neg); Protein, Urine 2+ (Neg); Urobilinogen, Urine 1+ (Normal)
[2023-01-13 15:29] LABS: BASOPHILS ABSOLUTE AUTO 0.01 K/mm3 (0.00-0.23); BASOPHILS PERCENT AUTO 0 % (0-2); EOSINOPHILS ABSOLUTE AUTO 0.01 K/mm3 (0.00-0.68); EOSINOPHILS PERCENT AUTO 0 % (0-6); Hematocrit 31.7 % (37.0-53.0); Hemoglobin 9.4 g/dL (13.5-17.5); IMMATURE GRAN ABSOLUTE AUTO 0.06 K/mm3 (0.00-0.10); IMMATURE GRAN PERCENT AUTO 1 % (0-1); LYMPHOCYTES ABSOLUTE AUTO 0.46 K/mm3 (0.84-5.20); LYMPHOCYTES PERCENT AUTO 5 % (21-46); MONOCYTES ABSOLUTE AUTO 0.42 K/mm3 (0.16-1.47); MONOCYTES PERCENT AUTO 5 % (4-13); Mean Corpuscular HGB 31.8 pg (26.0-34.0); Mean Corpuscular HGB Conc 29.7 g/dL (31.5-36.5); Mean Platelet Volume 9.7 fL (9.1-12.4); NEUTROPHILS PERCENT AUTO 89 % (41-73); Platelet Count 178 K/mm3 (150-400); RDW Coefficient Variation 12.9 % (11.7-14.2); Red Blood Cell Count 2.96 M/mm3 (4.30-5.90); White Blood Cell Count 8.86 K/mm3 (4.00-11.30)
[2023-01-13 15:31] LABS: Mean Corpuscular Volume 107 fL (80-100)
[2023-01-13 15:38] LABS: Bacteria Few /hpf; Calcium Oxalate Crystals Few /hpf; Red Blood Cells, Urine 0-2 /hpf (0-2); Squamous Epithelial Cells Rare /hpf (Few); White Blood Cells, Urine 0-2 /hpf (0-5)
[2023-01-13 15:56] LABS: Alanine Aminotransfer (ALT/SGP 22 U/L (12-78); Albumin, Blood 2.4 g/dL (3.4-5.0); Albumin/Globulin Ratio 0.6 (0.8-1.8); Alk Phos 49 U/L (50-136); Aspartate Aminotrans (AST/SGOT 23 U/L (12-37); Bilirubin, Total 0.5 mg/dL (0.1-1.0); Blood Urea Nitrogen 19 mg/dL (8-24); CO2, Blood 39 mmol/L (21-32); Chloride, Blood 110 mmol/L (98-108); Creatinine, Blood 0.76 mg/dL (0.60-1.20); Globulin, Blood 3.7 g/dL (2.2-4.0); Glomerular Filtration Rate 94 (60-); Glucose, Blood 122 mg/dL (70-99)
[2023-01-13 15:58] LABS: Anion Gap Unable to Calculate mmol/L (6-16); Sodium, Blood 145 mmol/L (136-145); Total Protein, Blood 6.1 g/dL (6.4-8.2)
[2023-01-13 16:00] LABS: Calcium, Blood 7.9 mg/dL (8.5-10.1); Potassium, Blood 3.9 mmol/L (3.5-5.5)
--- NOTE | 2023-01-13 16:15 | NUR ---
INITIAL ASSESSMENT PATIENT ARRIVED TO UNIT AT 1555. PATIENT INTUBATED. PATIENT ON VERSED AT 2 MG/ HOUR; INCREASED TO 4 MG/ HOUR. PATIENT PLACED ON PROPOFOL AT 20 MCG/ KG/ MINUTE. PATIENT RESPONDING TO NOXIOUS STIMULI. PATIENT AFEBRILE. REPORTS PATIENT HAS CHRONIC BACK PAIN. PATIENT ON VENT AT AC 20, TV 400, PEEP 8 AND 80% FIO2. RLL COARSE; ALL OTHER LUNG LOBES CLEAR TO AUSCULTATION. ETT 8.0 AND 26 AT TEETH. PATIENT IN BBB WITH PACS. HR 70S TO 80S. SBP 90S TO 120S. 2+ EDEMA NOTED TO BLES; ARE DISCOLORED AND SCALING OFF. FEET PULSES DOPPLERED. ABDOMEN MODERATELY DISTENDED, SOFT, NORMOACTIVE BOWEL SOUNDS NOTED. REPORTS HAD BM THIS AM. OG TO LIS. MARTINI IN PLACE DRAINING ERIC COLORED URINE. SCABS SCATTERED TO FOREHEAD AND NOSE. BUTTOCKS REDDENED BUT BLANCHEABLE. PURPURA NOTED TO BUES. PSORIASIS TO SCALP (FIRST REPORTED BY ). BED LOW, CALL LIGHT IN REACH. WILL CONTINUE TO MONITOR PATIENT FREQUENTLY THROUGHOUT SHIFT.
--- NOTE | 2023-01-13 17:28 | NUR ---
WASTED 98.3 MLS OF VERSED WITH GABRIELE PERSAUD RN.
--- NOTE | 2023-01-13 19:06 | NUR ---
SHIFT SUMMARY PATIENT REMAINED INTUBATED AND SEDATED. PATIENT APPEARS COMFORTABLE. PATIENT REMAINS RESPONDING TO NOXIOUS STIMULI. PATIENT HAS REMAINED AFEBRILE. FIO2 DECREASED FROM 80% TO 70%. HR AND BP REMAIN STABLE. NO BM. 150 MLS OF ERIC COLORED URINE OUT FROM MARTINI THIS SHIFT. NO CHANGES TO SKIN NOTED. NS INFUSING AT 125 MLS/ HOUR, PROPOFOL AT 20 MCG/ KG/ MINUTE AND FENTANYL DRIP AT 25 MCG/ HOUR. ALL ADMIT DATA COMPLETED EXCEPT MED LIST. , GLEN HELPED WITH PATIENT HISTORY. PATIENT APPEARS WITHOUT PAIN OR DISTRESS AT THIS TIME. BED LOW, CALL LIGHT IN REACH. REPORT HAS BEEN GIVEN TO ASSUMING TRUST MAIL CLERK NURSE.
--- NOTE | 2023-01-13 21:05 | NUR ---
ASSUMED CARE PT APPEARS TO BE A&O TO SELF, PLACE, SITUATION. PT COMMUNICATES WELL THROUGH NODDING/SHAKING HEAD. PT IS EXTREMELY ANXIOUS AND HAS SEVERE ITCHING ON HIS HEAD FROM PSORIASIS (PER REPORT/PT NODDING WHEN ASKED IF HEAD IS ITCHING). MAP >65; SPO2 >92% ON VENTILATOR (SEE SHIFT ASSESSMENT FOR SETTINGS). CONTINUOUS FENTANYL DRIP, PROPOFOL, AND NS INFUSING PER ORDER (SEE FLOWSHEET). MARTINI CATHETER PATENT AND DRAINING TO GRAVITY.
[2023-01-13] MEDS ORDERED: ALBU8HFA2 INH (23:57)
[2023-01-14] VITALS (95 sets, daily range): BP systolic 70–153; BP diastolic 41–137
--- NOTE | 2023-01-14 01:31 | NUR ---
UPDATE PT HR HAS BEEN TRENDING UPWARDS WHILE SUSTAINING IN THE 100-120'S (W/ OCCASIONAL BUMPS INTO THE 150'S). DR TAO INITIALLY CALLED W/ ORDERS FOR A 500ML BOLUS OF NS. PT HR CONTINUED TO TREND UPWARDS AND DR GODINEZ CALLED W/ ORDERS FOR 2.5 METOPROLOL. PT REMAINS IN THE 90-130'S (SBP NOW IN THE 90'S); DR GODINEZ CALLED AGAIN W/ ORDERS TO WAIT FOR 30 MINUTES AND CALL BACK IF PT REMAINS TACHYCARDIC.
[2023-01-14 03:49] LABS: BASOPHILS ABSOLUTE AUTO 0.01 K/mm3 (0.00-0.23); BASOPHILS PERCENT AUTO 0 % (0-2); EOSINOPHILS ABSOLUTE AUTO 0.04 K/mm3 (0.00-0.68); EOSINOPHILS PERCENT AUTO 1 % (0-6); Hematocrit 28.5 % (37.0-53.0); Hemoglobin 8.8 g/dL (13.5-17.5); IMMATURE GRAN ABSOLUTE AUTO 0.02 K/mm3 (0.00-0.10); IMMATURE GRAN PERCENT AUTO 0 % (0-1); LYMPHOCYTES ABSOLUTE AUTO 0.95 K/mm3 (0.84-5.20); LYMPHOCYTES PERCENT AUTO 13 % (21-46); MONOCYTES ABSOLUTE AUTO 0.56 K/mm3 (0.16-1.47); MONOCYTES PERCENT AUTO 8 % (4-13); Mean Corpuscular HGB 31.2 pg (26.0-34.0); Mean Corpuscular HGB Conc 30.9 g/dL (31.5-36.5); NEUTROPHILS ABSOLUTE AUTO 5.59 K/mm3 (1.96-9.15); NEUTROPHILS PERCENT AUTO 78 % (41-73); Platelet Count 169 K/mm3 (150-400); RDW Coefficient Variation 12.8 % (11.7-14.2); RDW Standard Deviation 47.5 fL (35.1-46.3); Red Blood Cell Count 2.82 M/mm3 (4.30-5.90); White Blood Cell Count 7.17 K/mm3 (4.00-11.30)
[2023-01-14 03:53] LABS: Mean Corpuscular Volume 101 fL (80-100)
[2023-01-14 04:11] LABS: Alanine Aminotransfer (ALT/SGP 15 U/L (12-78); Albumin, Blood 2.2 g/dL (3.4-5.0); Albumin/Globulin Ratio 0.6 (0.8-1.8); Alk Phos 43 U/L (50-136); Anion Gap 0 mmol/L (6-16); Aspartate Aminotrans (AST/SGOT 13 U/L (12-37); Bilirubin, Total 0.3 mg/dL (0.1-1.0); Blood Urea Nitrogen 22 mg/dL (8-24); Bun/Creatinine Ratio 25.3 (12.0-20.0); CO2, Blood 37 mmol/L (21-32); Calcium, Blood 8.1 mg/dL (8.5-10.1); Chloride, Blood 105 mmol/L (98-108); Creatinine, Blood 0.87 mg/dL (0.60-1.20); Digoxin (Lanoxin) 0.24 ug/mL (0.80-2.00); Globulin, Blood 3.5 g/dL (2.2-4.0); Glomerular Filtration Rate 91 (60-); Glucose, Blood 90 mg/dL (70-99); Sodium, Blood 142 mmol/L (136-145); Total Protein, Blood 5.7 g/dL (6.4-8.2)
--- NOTE | 2023-01-14 04:20 | NUR ---
UPDATE DR GODINEZ UPDATED W/ DIGOXIN LEVEL W/ DIGOXIN LOAD TO BE PUT IN. PT HR SUSTAINING AT 145.
--- NOTE | 2023-01-14 04:41 | NUR ---
UPDATE DR GODINEZ CALLED THIS RN TO CONFIRM DIGOXIN WAS ON PT'S HOME MED LIST. WAS NOT IN H&P, BUT ON [facility] MEDICATION LIST. THIS RN HAS NOT UPDATED PT'S MEDICATION LIST D/T INACCURATE DIRECTIONS (DIRECTIONS WOULD STATE, "2 PUFFS OF ATORVASTATIN, ETC.".
--- NOTE | 2023-01-14 05:52 | NUR ---
SHIFT SUMMARY PT IS INTUBATED AND SEDATED; W/ NEW VENT SETTINGS AT 16, 15/8, 45%; SEE FLOWSHEET FOR IV RATES. PT RESTED QUIETLY T/O NIGHT EXCEPT WOULD BECOME AGITATED WITH PHYSICAL INTERVENTIONS (TURNS, XRAY, ETC.). PT COMMUNICATED APPROPRIATELY THROUGH NODDING/SHAKING OF HEAD AND THIS RN WAS ABLE TO DISCERN THAT PT'S AGITATION WAS D/T IRRITATION FROM ETT TUBE. PT DENIED PAIN. NO C/O OF CP, SOB, OR NAUSEA. MARTINI CATHETER PATENT AND DRAINING TO GRAVITY. NO NEW EVENTS BESIDES THOSE MENTIONED IN PREVIOUS NOTES.
--- NOTE | 2023-01-14 07:44 | NUR ---
CARE ASSUMPTION PT LYING IN BED W SWB RESTRAINTS INTACT. PT ON VENTILATOR AC/PC RATE 16, PC OF 15 W PEEP OF 80.O, FIO2 45%. SPO2 >92%. MONITOR SHOWING SINUS ARRYTHMIA 130'S/ BP STABLE. PROPOFOL AT 40MCG,KG,MIN. FENTANYL CASHIERS BUSSERS FOOD RUNNERS 50MCG/HR. NS RUNNING AT 125ML/HR. PT RAISING EYEBROWS WHEN SPOKEN TO BUT DOES NOT SQUEEZE MY HAND WHEN PROMPTED TO. MARTINI CATHETER INTACT AND DRAINING CLEAR YELLOW URINE. TEMP 99.1.
[2023-01-14] MEDS ORDERED: Bisoprolol Fumar5 MG PO (08:53)
[2023-01-14] MEDS ORDERED: LIDO5TO TOP (08:54)
[2023-01-14] MEDS ORDERED: BUSP10 PO (08:55)
[2023-01-14] MEDS ORDERED: SPIR25 PO (08:56)
[2023-01-14] MEDS ORDERED: LOSA25 PO (11:05)
[2023-01-14] MEDS ORDERED: SOAANZ40 M1 PO (11:07)
[2023-01-14] MEDS ORDERED: Percocet 5-3251 EACH PO (11:07)
--- NOTE | 2023-01-14 13:37 | NUR ---
UPDATE DR. HAND IN ASSESSING PT AND SPEAKING W PT'S . PROVIDER UPDATED ON PT'S RESTLESSNESS AND CURRENT TOBACCO USE, NICOTINE PATCH ORDERED. PROVIDER NOTIFIED OF PT'S PSORIASIS ON SCALP AND RELATED ITCHING, NO NEW ORDERS FOR THIS AT THIS TIME.
--- NOTE | 2023-01-14 18:14 | NUR ---
DAYSHIFT SUMMARY PT HAS REMAINED A RASS SCOE OF -2 ALL DAY OPENING HIS EYES WHEN SPOKEN TO AND NODDING HIS HEAD TO YES OR NO QUESTIONS. PT ON VENT 21/04//W 40% FIO2. MONITOR SHOWS A-FLUTTER 130-159. PT'S BP BECAME HYPOTENSIVE THIS AM WHEN HR WAS IN THE 150'S HOWEVER AFTER PT RECIEVED DIGOXIN HIS HR WAS BACK INTO THE 130'S. PT STARTED ON CARDIZEM GTT AND HAS BEEN ON CARDIZEM 10MG/HR FOR SECOND HALF OF THE DAY W NO RESPONSE IN HIS HR. PT GIVEN VERSED MULTIPLE TIMES THIS SHIFT HE WOULD BECOME VERY RESTLESS PULLING AGAINST HIS RESTRAINTS CAUSING HIS HR TO BECOME MORE ELEVATED. PT STARTED ON TF THIS SHIFT AND HAS TOLERATED THEM WELL THIS SHIFT. PT'S MARTINI PATENT AND DRAINED 300ML DARK ERIC URINE THIS SHIFT. PT'S AT BEDSIDE FOR MUCH OF THE DAY. PT CURRENTLY LYING IN BED COMFORTABLY IN NO DISTRESS. WILL REPORT TO ONCOMING RN.
--- NOTE | 2023-01-14 20:43 | NUR ---
UPDATE DR TAO CALLED THE UNIT TO FOLLOW UP REGARDING HR. HR CONT TO BE 130'S; BP IMPROVED, CURRENTLY 111/73. NEW ORDERS PROVIDED TO START AMIODERONE GTT, 1MG/MIN FOR 6HR FOLLOWED BY 0.5MG/MIN FOR 18HRS. NO AMIODERONE BOLUS. WCTM.
--- NOTE | 2023-01-14 22:52 | NUR ---
ASSUMED CARE AT 1900 PT LAYING IN BED INTUBATED WITH VENT SETTINGS AC/PC RATE 16, 12/8; FIO2 40%; MODERATE AMOUNT OF MOORE SECREATIONS FROM ETT. PT IS RESPONSIVE TO VERBAL STIMULI; ANSWERING Y/N QUESTIONS WITH HEAD NODS; SEDATED WITH PROPOFOL INFUSING AT 45MCG/KG/MIN AND VERSED STARTED AT THE BEGINNING OF THIS SHIFT AND TITRATED UP TO INFUSING AT 2MG/HR; FENTANYL GTT STOPPED ONCE VERSED STARTED; RASS -1. HR MORE VARIABLE NOW THAT THE AMIODERONE HAS STARTED; HR 100-130; SBP 100-120; MAP 75-80; CARDIZEM STOPPED AT SHIFT CHANGE. VHP INFUSING VIA OG AT 20ML/HR (GOAL) WITH 30ML WATER FLUSHES Q4HR. MARTINI IN PLACE AND DRAINING TO GRAVITY. NS INFUSING AT 75ML/HR. SEE SHIFT ASSESSMENT FOR FULL ASSESSMENT.
[2023-01-15] VITALS (78 sets, daily range): BP systolic 77–164; BP diastolic 50–108
[2023-01-15 03:28] LABS: BASOPHILS ABSOLUTE AUTO 0.02 K/mm3 (0.00-0.23); BASOPHILS PERCENT AUTO 0 % (0-2); EOSINOPHILS ABSOLUTE AUTO 0.15 K/mm3 (0.00-0.68); EOSINOPHILS PERCENT AUTO 3 % (0-6); Hematocrit 27.2 % (37.0-53.0); Hemoglobin 8.4 g/dL (13.5-17.5); IMMATURE GRAN ABSOLUTE AUTO 0.01 K/mm3 (0.00-0.10); IMMATURE GRAN PERCENT AUTO 0 % (0-1); LYMPHOCYTES ABSOLUTE AUTO 1.03 K/mm3 (0.84-5.20); LYMPHOCYTES PERCENT AUTO 18 % (21-46); MONOCYTES ABSOLUTE AUTO 0.47 K/mm3 (0.16-1.47); MONOCYTES PERCENT AUTO 8 % (4-13); Mean Corpuscular HGB 31.9 pg (26.0-34.0); Mean Corpuscular HGB Conc 30.9 g/dL (31.5-36.5); Mean Corpuscular Volume 103 fL (80-100); Mean Platelet Volume 9.8 fL (9.1-12.4); NEUTROPHILS ABSOLUTE AUTO 4.07 K/mm3 (1.96-9.15); NEUTROPHILS PERCENT AUTO 71 % (41-73); Platelet Count 154 K/mm3 (150-400); RDW Coefficient Variation 13.2 % (11.7-14.2); RDW Standard Deviation 49.1 fL (35.1-46.3); Red Blood Cell Count 2.63 M/mm3 (4.30-5.90); White Blood Cell Count 5.75 K/mm3 (4.00-11.30)
[2023-01-15 03:44] LABS: Anion Gap 3 mmol/L (6-16); Blood Urea Nitrogen 22 mg/dL (8-24); Bun/Creatinine Ratio 23.4 (12.0-20.0); CO2, Blood 34 mmol/L (21-32); Calcium, Blood 7.8 mg/dL (8.5-10.1); Chloride, Blood 106 mmol/L (98-108); Creatinine, Blood 0.94 mg/dL (0.60-1.20); Glomerular Filtration Rate 85 (60-); Glucose, Blood 101 mg/dL (70-99); Phosphorus, Blood 3.3 mg/dL (2.5-4.9); Potassium, Blood 3.9 mmol/L (3.5-5.5); Sodium, Blood 143 mmol/L (136-145)
--- NOTE | 2023-01-15 06:34 | NUR ---
END OF SHIFT SUMMARY NO ACUTE EVENTS OVERNIGHT. CONT TO BE INTUBATED WITH VENT SETTINGS RATE 16, 14/7, FIO2 40%; ETT SECREATIONS SLOWED DOWN. RASS SCORE TRENDING DOWN FROM -1 TO -3; TITRATING SEDATION DOWN, CURRENTLY VERSED ON SB AND PROPOFOL INFUSING AT 35MCG/KG/MIN. TEMP TRENDING DOWN, CURRENTLY AT 96.6; BARE HUGGER PLACED. AMIODERONE DECREASED TO 0.5MG/MIN AT 0310; AFIB RATE IMPROVED WITH HR 90-120. SBP 90-120; MAP 65-85. VHP INFUSING AT GOAL. MARTINI IN PLACE WITH 400ML URINE OUTPUT. NS INFUSING AT 75ML/HR. WILL REPORT TO AM RN WHEN AVAILABLE.
--- NOTE | 2023-01-15 07:10 | NUR ---
CARE ASSUMPTION DURING BS REPORT W DALLIN Durham RN THE PT IS LYING IN BED APPEARING COMFORTABLE IN NO DISTRESS. PT ON VENTILATOR A/C W PC 16/7.0/40% W PC OF 14. MONITOR SHOWING AFIB 90'S-100'S. BP WNL AND STABLE. PROPOFOL RUNNING AT 35MCG/KG/HR. NS RUNNING AT 75ML/HR. AMIO GTT RUNNING AT 0.5MG/HR. RT IN RM AT THIS TIME ASSESSING PT AND VENTILATOR.
--- NOTE | 2023-01-15 08:40 | NUR ---
UPDATE PT'S SEDATION PUT ON SB FOR SBT. PT AWAKE AND ATTEMPTING TO COMMUNICATE BY WRITING ON PAPER. PT EDUCATED ON WHERE HE IS AND WHY HE IS HERE. PT NODDING YES THAT HE UNDERSTANDS. PT PLACE ON SPONTANEOUS MODE ON VENTILATOR PER RT TERESITA PT TOLERATING WELL. PROVDER IN ROOM ASSESSING PT AT THIS TIME.
--- NOTE | 2023-01-15 09:41 | NUR ---
UPDATE THIS RN SPOKE WITH PT'S ON THE PHONE AND UPDATED HER ON THE PT'S CONDITION. PT'S TOLD THAT THE PT IS CURRENTLY AWAKE STILL ON THE VENTILATOR BUT IS DOING WELL. PT'S EXPRESSED HER EXCITEMENT OF THIS UPDATE AND STATED THAT SHE WILL BE IN TO SEE THE PT IN APPROX ONE HOUR.
--- NOTE | 2023-01-15 10:30 | NUR ---
UPDATE PROVIDERS IN RM ASSESSING PT. NS FLUIDS DC'D PER MD ORDER. LASIX AND SOLU-MEDROL ORDERS GIVEN.
--- NOTE | 2023-01-15 19:16 | NUR ---
DAYSHIFT SUMMARY PT IS ALERT AND ORIENTED USING PEN AND PAPER TO COMMUNICATE W STAFF. PT'S SEDATION WAS TURNED OFF THIS AM FOR SBT AND REMAINED OFF FOR MOST OF THE SHIFT UNTIL LATE IN THE DAY WHEN HE BEGAN COUGHING AND HAVING MORE TROUBLE WITH THE VENTILATOR SO HE WAS PLACED BACK ON PROPOFOL. VENTILATOR PLACED ON PS OF 10 W PEEP OF 7.0 40% FIO2 THIS AM AND REMAINED THIS WAY ALL SHIFT. PT TAKEN OUT OF RESTRAINTS THIS AFTERNOON FOR SEVERAL HOURS UNTIL HE BEGAN TO STRUGGLE W THE ET TUBE SO THEY WERE REAPPLIED HE WAS GRABBING HIS ET TUBE. MONITOR SHOWING AFIB 110'S-130'S W AMIO GTT RUNNING ALL SHIFT. BP WNL AND STABLE THIS SHIFT. PT AFEBRILE THIS SHIFT. TF RUNNING AT INCREASED GOAL RATE OF 50ML/HR, PT TOLERATING WELL. NO BM THIS SHIFT. PROVIDER NOTIFIED OF PT'S FLUID BALANCE THIS AM AND ONE TIME DOSE OF LASIX GIVEN W >4L OF CLEAR YELLOW URINE OUT OF HIS MARTINI CATHETER THIS SHIFT, SEE I&O'S FOR DETAILS. CBG'S STABLE. AT BEDSIDE FOR MOST OF THE DAY. PT CURRENTLY LYING IN BED DENYING ANY FURTHER NEEDS AT THIS TIME. BEDSIDE REPORT GIVEN TO VIANEY READ.
--- NOTE | 2023-01-15 21:22 | NUR ---
ASSUMED CARE PT INTUBATED AND SEDATED. VENT SETTINGS PS 10/7 FIO2 40%. PROPOFOL AND AMIODARONE GTT INFUSING AT CHANGE OF SHIFT. SEE FLOWSHEET FOR TITRATIONS. PT ALERT, FOLLOWING COMMANDS, AND ABLE TO COMMUNICATE WITH STAFF VIA WRITING AND GESTURING. REGULAR RHYTHUM, WITHOUT VISIBLE P WAVES. RATE 120'S. AMIODARONE STOPPED 2100. PT DENIES CHEST OR ABD PAIN. PT ABLE TO COMMUNICATE HE HAS 7/10 PAIN IN HIS BACK AND "ALL OVER" FROM A PREVIOUS INJURY SUSTAINED FROM JUMPING FROM A HELICOPTER. MEDICATED PER EMAR. TF INFUSING AT GOAL. MARTINI PATENT AND DRAINING TO GRAVITY.
[2023-01-16] VITALS (75 sets, daily range): BP systolic 96–194; BP diastolic 64–113
[2023-01-16 04:10] LABS: BASOPHILS ABSOLUTE AUTO 0.01 K/mm3 (0.00-0.23); BASOPHILS PERCENT AUTO 0 % (0-2); EOSINOPHILS ABSOLUTE AUTO 0.01 K/mm3 (0.00-0.68); EOSINOPHILS PERCENT AUTO 0 % (0-6); Hematocrit 30.2 % (37.0-53.0); Hemoglobin 9.4 g/dL (13.5-17.5); IMMATURE GRAN ABSOLUTE AUTO 0.02 K/mm3 (0.00-0.10); IMMATURE GRAN PERCENT AUTO 0 % (0-1); LYMPHOCYTES ABSOLUTE AUTO 0.35 K/mm3 (0.84-5.20); LYMPHOCYTES PERCENT AUTO 5 % (21-46); MONOCYTES ABSOLUTE AUTO 0.38 K/mm3 (0.16-1.47); MONOCYTES PERCENT AUTO 5 % (4-13); Mean Corpuscular HGB 31.2 pg (26.0-34.0); Mean Corpuscular HGB Conc 31.1 g/dL (31.5-36.5); Mean Corpuscular Volume 100 fL (80-100); Mean Platelet Volume 10.1 fL (9.1-12.4); NEUTROPHILS ABSOLUTE AUTO 6.42 K/mm3 (1.96-9.15); NEUTROPHILS PERCENT AUTO 89 % (41-73); Platelet Count 198 K/mm3 (150-400); RDW Standard Deviation 48.1 fL (35.1-46.3); Red Blood Cell Count 3.01 M/mm3 (4.30-5.90); White Blood Cell Count 7.19 K/mm3 (4.00-11.30)
[2023-01-16 04:26] LABS: Albumin, Blood 2.3 g/dL (3.4-5.0); Anion Gap 3 mmol/L (6-16); Blood Urea Nitrogen 27 mg/dL (8-24); Bun/Creatinine Ratio 29.5 (12.0-20.0); CO2, Blood 38 mmol/L (21-32); Calcium, Blood 8.3 mg/dL (8.5-10.1); Chloride, Blood 102 mmol/L (98-108); Creatinine, Blood 0.92 mg/dL (0.60-1.20); Glomerular Filtration Rate 87 (60-); Glucose, Blood 116 mg/dL (70-99); Sodium, Blood 143 mmol/L (136-145)
--- NOTE | 2023-01-16 05:44 | NUR ---
SHIFT SUMMARY NO ACUTE EVENTS T/O NIGHT. PT REMAINS INTUBATED AND SEDATED. PS 8/5 FIO2 35%. PROPOFOL GTT REMAINS INFUSING. SEE FLOWSHEET FOR TITRATIONS. PT ALERT AND FOLLOWING DIRECTIONS. HR 110-120'S. OTHER VSS. PT ABD DISTENDED, PT CONTINUES TO DENY ABD PAIN. TF INFUSING AT GOAL. BED BATH AND LINEN CHANGE DONE. MARTINI PATENT AND DRAINING TO GRAVITY. WILL REPORT OFF TO ONCOMING NURSE.
--- NOTE | 2023-01-16 07:24 | NUR ---
CARE ASSUMPTION PT IS LYING IN BED AWAKE BUT APPEARING COMFORTABLE. PT IS INTUBATED ON VENTILATOR MODES SPONTANEOUS W PRESSURE SUPPORT OF 8, PEEP IS 5.0 AND FIO2 IS AT 35%. MONITOR SHOWING TACHYCARDIA 110'S. BP WNL AND STABLE. PT AWAKE AND USING PAPER AND PEN TO COMMUNICATE W THIS RN. PT IS IN BILATERAL WRIST RESTRAINTS, NO DISTRESS NOTED. CARE ASSUMED BY THIS RN AFTER BEDSIDE REPORT FROM VIANEY READ.
--- NOTE | 2023-01-16 10:44 | NUR ---
EXTUBATED PT EXTUBATED BY MAYURI MARTINEZ AT 1042. PT PLACED ON 6L NC. PT TOLERATING WELL W SPO2 >94%. PT IS ALERT AND TALKING W STAFF.
--- NOTE | 2023-01-16 15:12 | NUR ---
Initial palliative care consult: Donato is a 72 year old gentleman who was admitted with chronic respiratory failure on 01/13/23. He has a history of COPD with home O2 of 2-3 l/m of oxygen, CAD, CHF, anxiety, chronic back pain and aortic stenosis. He has a home Trilogy that he has used for the past four years. His , Jewell, is at the bedside. He was extubated earlier this morning. He is currently asking questions about when his next doses of antibiotics are due and he is requesting a breathing treatment. He does appear to be working to breathe and this is making his anxious. Notified nursing who will request a breathing treatment for him. Reviewed antibiotics and the next doses due are tomorrow morning. Informed pt re: next antibiotc dose. Was planning to meet with pt and his today to discuss some advanced care planning and to talk about his goals. With his increased work of breathing this is not the right time to have that dicsussion. Established rapport. PC will plan to return to meet with pt and family at better time.
--- NOTE | 2023-01-16 15:25 | NUR ---
CARE HAND-OFF BS REPORT GIVEN TO ERIC AUTOMATIC DEVELOPER.
--- NOTE | 2023-01-16 16:03 | NUR ---
ASSUMED CARE OF PATIENT AT 1520. DURING REPORT FROM PREVIOUSLY ASSIGNED NURSE, PATIENT'S MONITOR ALARMED FOR VTACH RHYTHM. UPON ENTERING THE ROOM, PATIENT WAS LEANING TO HIS LEFT SIDE OVER BED RAIL, VISIBLY SHORT OF BREATH, EYES GAZED UPWARD, MILD DIAPHORESIS. HR 120 SPO2 AT 88%. CANNULA WAS ASSESSED AND PATENT. PATIENT WAS SLIGHTLY REPOSITIONED AND WAS ENCOURAGED TO TRY AND TAKE A DEEP BREATH. RT AND IDEA MAN AT BEDSIDE. PATIENT DESATURATED TO 54%. BOTH TRILOGY AND NONREBREATHER WERE TRIALED; ULTIMATELY REQUIRED BIPAP FOR GREATER O2 SATURATION WITH 2 NEBULIZER TREATMENTS BACK TO BACK. EKG DONE SHOWING INFERIOR LEAD CHANGES. REVIEWED WITH DR. MARCIAL; PATIENT TO REMAIN IN ICU OVERNIGHT. CARDIOLOGY CONSULT PLACED; NOTIFIED BY CHARGE NURSE WILL CONTINUE TO MONITOR.
[2023-01-16 17:30] LABS: Anti-Xa UFH, PHA Monitoring 0.76 IU/mL; International Normalized Ratio 1.06; Prothrombin Time Results 11.1 Sec (9.7-11.5)
--- NOTE | 2023-01-16 18:27 | NUR ---
END OF SHIFT SUMMARY ASSUMED CARE OF PATIENT AT 1500. PATIENT HAD ACUTE EVENT OF OXYGEN DESATURATION AND 30 SECOND EPISODE OF VTACH. BIPAP WAS APPLIED AT 40% WITH BACK TO BACK NEBULIZER TREATMENT, RESTORING SPO2 TO 90'S. NEURO: PATIENT IS AOX4. HE IS DROWSY BUT ABLE TO VERBALIZE REQUESTS AND FOLLOW COMMANDS. REMAINED PLEASANT THROUGH THE ENTIRETY OF THE SHIFT. PATIENT REPORTS A HISTORY OF CHRONIC LOW BACK PAIN, FOR WHICH HE HAS REQUIRED FENTANYL IV THAT PROVIDES RELIEF. CARDIAC: ACUTE EVENT MENTIONED ABOVE, WELL FURTHER DETAIL IN ASSUMPTION OF CARE NOTE. REMAINED SINUS TACHY IN 120'S, BP STABLE. RESPIRATORY: BIPAP AT 40% FOLLOWING ACUTE EVENT. NASAL CANNULA APPLIED AT 6LPM AT 1815 FOR ORAL MEDICATION ADMINISTRATION. PATIENT TOLERATED WELL, SPO2 96%. GI: PATIENT HAD SMALL BM THIS MORNING; HOWEVER, HE WAS STRAINING TO HAVE ANOTHER WHEN ACUTE EVENT OCCURED. MOM ADMINISTERED AT 1830. : MARTINI IN PLACE, DRAINING WELL. PSYCH: REMAINED IN PT'S ROOM FOR THE ENTIRETY OF THE SHIFT. LINES: RFA X 2. HEPARIN RUNNING AT 15U/KG/HR. HAD IV IN RIGHT HAND THAT HE INADVERTENTLY PULLED OUT EARLIER THIS SHIFT.
--- NOTE | 2023-01-16 18:58 | NUR ---
NURSING STUDENTS DOCUMENTATION REVIEWED AGREE WITH ALL DOCUMENTED ASSESSMENT DATA AND NURSING NOTES
--- NOTE | 2023-01-16 20:35 | NUR ---
ASSUMED CARE ASSUMED CARE AT 1900. PT A/O X 4, DROWSY, AND SITTING UP IN BED. HEPARIN GTT INFUSING. ON 6L NC WITH SPO2 GREATER THAN 92%. RT IN ROOM APPROX 1999 AND SWITCHED PT TO BIPAP 12/8 40% FIO2. VSS. SINUS TACH, RATE 120'S. DENIES CHEST PAIN/PRESSURE. ABD DISTENDED AND FIRM. PT DENIES ABD PAIN. BOWEL CARE MEDICATION GIVEN. PT C/O BACK PAIN. MEDICATED PER EMAR. MARTINI PATENT AND DRAINING TO GRAVITY. CALL LIGHT IN REACH.
[2023-01-17] VITALS (54 sets, daily range): BP systolic 95–149; BP diastolic 57–108
--- NOTE | 2023-01-17 01:49 | NUR ---
RHYTHM CHANGE APPROX 0130 [employer] MAKER ALARMED VTACH. RATE 110'S. THIS RN IN ROOM AND PT FOUND SITTING UP IN BED, A/O, AND DENYING CHEST PAIN/PRESSURE. PT ATTEMPTED TO BEAR DOWN, AND BLOW ON A EMPTY SYRINGE. NO CHANGES IN RHYTHM. EKG DONE SHOWING SINUS TACH W/ RIGHT BBB. HOSP CALLED AND STATED HE WILL REVIEW THE CHART. PT ASYMPTOMATIC, STATING "I FEEL FINE" WHEN ASKED. PT C/O BACK PAIN, AND WHEN ASKED IF IT FEELS THE SAME THE BACK PAIN HE HAD EARLIER HE REPLIED YES. MEDICATED PER EMAR. RHYTHM APPEARS TO CONVERT TO AFIB FOR 3-5 BEATS AND THEN CONVERT BACK TO SINUS TACH W/ WIDE QRS.
--- NOTE | 2023-01-17 02:36 | NUR ---
UPDATE NO NEW CHANGES SINCE LAST NOTE. RHYTHM REMAINS IN 110'S, WITH WIDE QRS. HOSP AT BEDSIDE TO EVALUATE EKG AND PT. NO NEW ORDERS AT THIS TIME. PLAN TO MONITOR PT T/O NIGHT. CALL MADE TO PT "GLEN". SHE WAS UPDATED ON PT CONDITION, AND POC.
[2023-01-17 02:40] LABS: BASOPHILS PERCENT AUTO 0 % (0-2); EOSINOPHILS ABSOLUTE AUTO 0.01 K/mm3 (0.00-0.68); EOSINOPHILS PERCENT AUTO 0 % (0-6); Hematocrit 35.1 % (37.0-53.0); Hemoglobin 10.6 g/dL (13.5-17.5); IMMATURE GRAN ABSOLUTE AUTO 0.03 K/mm3 (0.00-0.10); IMMATURE GRAN PERCENT AUTO 0 % (0-1); LYMPHOCYTES ABSOLUTE AUTO 0.76 K/mm3 (0.84-5.20); LYMPHOCYTES PERCENT AUTO 9 % (21-46); MONOCYTES ABSOLUTE AUTO 0.45 K/mm3 (0.16-1.47); MONOCYTES PERCENT AUTO 5 % (4-13); Mean Corpuscular HGB 31.5 pg (26.0-34.0); Mean Corpuscular HGB Conc 30.2 g/dL (31.5-36.5); Mean Corpuscular Volume 104 fL (80-100); Mean Platelet Volume 9.9 fL (9.1-12.4); NEUTROPHILS ABSOLUTE AUTO 7.46 K/mm3 (1.96-9.15); NEUTROPHILS PERCENT AUTO 86 % (41-73); Platelet Count 218 K/mm3 (150-400); RDW Coefficient Variation 12.9 % (11.7-14.2); RDW Standard Deviation 49.1 fL (35.1-46.3); Red Blood Cell Count 3.37 M/mm3 (4.30-5.90); White Blood Cell Count 8.71 K/mm3 (4.00-11.30)
[2023-01-17 03:44] LABS: Albumin, Blood 2.5 g/dL (3.4-5.0); Anion Gap 3 mmol/L (6-16); Blood Urea Nitrogen 29 mg/dL (8-24); Bun/Creatinine Ratio 35.8 (12.0-20.0); CO2, Blood 40 mmol/L (21-32); Calcium, Blood 8.8 mg/dL (8.5-10.1); Chloride, Blood 100 mmol/L (98-108); Creatinine, Blood 0.81 mg/dL (0.60-1.20); Glomerular Filtration Rate 93 (60-); Glucose, Blood 84 mg/dL (70-99); Phosphorus, Blood 3.7 mg/dL (2.5-4.9); Potassium, Blood 4.7 mmol/L (3.5-5.5); Sodium, Blood 143 mmol/L (136-145)
--- NOTE | 2023-01-17 04:52 | NUR ---
UPDATE PT REMAINS IN SAME RHYTHM PREVIOUSLY NOTED. HOSP CALLED AND ORDER RECEIVED FOR ONE TIME DOSE OF 2.5 MG METOPROLOL IV PUSH.
--- NOTE | 2023-01-17 06:00 | NUR ---
SHIFT SUMMARY SEE PREVIOUS NOTES. METROPOLOL GIVEN AND PT CONVERTED TO NARROW QRS SINUS TACH. PT A/O X 4 AND FOLLOWING DIRECTIONS THIS AM. PT DROWSY BUT AWAKENS EASILY WITH VERBAL STIMULI. CONTINUES TO DENY CHEST PAIN OR PRESSURE. STATES "I FEEL ALOT BETTER". VSS. SWITCHED BETWEEN BIPAP AND 6L NC T/O NIGHT. BIPAP FIO2 NOW 50%. PT HAD TWO LARGE LOOSE BM'S THIS SHIFT. CALLED THIS AM AND GIVEN UPDATE ON PT CONDITION. CALL LIGHT IN REACH. WILL REPORT OFF TO ONCOMING RN.
--- NOTE | 2023-01-17 07:11 | NUR ---
ASSUMPTION OF CARE BEDSIDE REPORT RECEIVED AND HEPARIN GTT INFUSING AT 17UNITS/KG/HR. PT ALERT AND AWAKE, CONVERSING WITH STAFF DURING REPORT. HE IS ON BIPAP 08/13 WITH 50% FIO2. SINUS TACH WITH BBB ON MONITOR, BP STABLE. BED IN LOW POSITION AND CALL LIGHT WITHIN REACH.
--- NOTE | 2023-01-17 15:15 | NUR ---
UPDATE PT ASSISTED TO RECLINER WITH MODERATE 2 PERSON ASSIST, GAIT BELT AND WALKER. PT ATE LUNCH AND SAT IN CHAIR FOR APPROX 3 HOURS. PT USED BEDSIDE COMMODE AND HAD 1 UNMEASURED VOID AND LARGE LIQUID STOOL. PT ALERT AND ORIENTED. PT C/O CHRONIC PAIN, MEDICATED PER EMAR. AT BEDSIDE FOR MOST OF THE DAY. PT ASSISTED BACK TO BED, BED IN LOW POSITION AND CALL LIGHT WITHIN REACH.
--- NOTE | 2023-01-17 17:26 | NUR ---
SHIFT SUMMARY PT IS ALERT AND ORIENTED WITH PLEASANT AFFECT. PT REPORTS "FEELING MUCH BETTER TODAY". HE IS STILL REQUIRING MODERATE ASSISTANCE WITH ADLS. HE SAT IN THE RECLINER FOR AWHILE THIS AFTERNOON AND USED THE BEDSIDE COMMODE. HE IS ON 6L NC WITH SPO2 >93%. PLAN TO TRANSITION PT TO HOME TRILOGY BEFORE BEDTIME. PT HAS OCCASIONAL PRODUCTIVE COUGH. PT ATE ALL MEALS TODAY. BOWEL TONES ACTIVE. 1 EPISODE OF LIQUID STOOL. MARTINI REMOVED TODAY, PT HAD ONE UNMEASURED VOID. SPOUSE AT BEDSIDE MOST OF THE DAY. PT HAS REMAINED IN BBB TACHYCARDIA WITH RATE 110S-120S. BP STABLE WITH MAP >65. PT HAS DENIED CP THROUGHOUT SHIFT. BED IN LOW POSITION AND CALL LIGHT WITHIN REACH.
--- NOTE | 2023-01-17 21:48 | NUR ---
ASSUMED CARE ASSUMED CARE AT 1900. PT A/O X4. ANSWERS ALL QUESTIONS APPROPRIATELY. AT TIMES PT APPEARS TO BE CONFUSED. PT STATES "WHY IS THERE CANNED FOOD UP THERE" AND "IM GOING OUT TO DINNER WITH MY ". PT ALSO PULLS AT LINES/CORDS/CPAP. EASILY REDIRECTABLE AND REORIENTED. PT SWITCHED FROM 5L NC TO HOME CPAP. O2 INCREASED FROM 5L TO 8L VIA CPAP. SPO2 90-92%. VSS. ST W/ BBB RATE 120'S. C/O BACK PAIN 7/10 MEDICATED PER EMAR. PT INCONT AND CONT OF URINE THIS SHIFT.
[2023-01-18] VITALS (28 sets, daily range): BP systolic 92–127; BP diastolic 54–103
[2023-01-18 03:58] LABS: Hematocrit 31.6 % (37.0-53.0); Hemoglobin 9.5 g/dL (13.5-17.5); Mean Corpuscular HGB 31.6 pg (26.0-34.0); Mean Corpuscular HGB Conc 30.1 g/dL (31.5-36.5); Mean Corpuscular Volume 105 fL (80-100); Mean Platelet Volume 9.7 fL (9.1-12.4); Platelet Count 180 K/mm3 (150-400); RDW Coefficient Variation 12.7 % (11.7-14.2); RDW Standard Deviation 48.4 fL (35.1-46.3); Red Blood Cell Count 3.01 M/mm3 (4.30-5.90); White Blood Cell Count 6.45 K/mm3 (4.00-11.30)
[2023-01-18 04:17] LABS: Bun/Creatinine Ratio 37.5 (12.0-20.0); Calcium, Blood 8.7 mg/dL (8.5-10.1); Creatinine, Blood 0.88 mg/dL (0.60-1.20); Magnesium, Blood 2.3 mg/dL (1.6-2.4); Phosphorus, Blood 2.6 mg/dL (2.5-4.9); Potassium, Blood 5.1 mmol/L (3.5-5.5)
--- NOTE | 2023-01-18 05:25 | NUR ---
SHIFT SUMMARY NO ACUTE EVENTS T/O NIGHT. PT ABLE TO APPROPRIATELY ANSWER ORIENTATION QUESTIONS, BUT IS PLEASANTLY CONFUSED AT TIMES. PT SEEING THINGS/PEOPLE IN ROOM WHILE ONLY THIS NURSE IS PRESENT. EASILY REDIRECTABLE. ST RATE 110'S TO 120'S. VSS. PT WORE HOME CPAP T/O MOST OF NIGHT. PT CONTINUED TO DENY CHEST PAIN/ABD PAIN/SOB T/O SHIFT. NO BM THIS SHIFT. PT CONT OF URINE AFTER APPROX 2200. CALL LIGHT IN REACH. WILL REPORT OFF TO ONCOMING NURSE.
--- NOTE | 2023-01-18 10:31 | NUR ---
INTERDISCIPLINARY ROUNDS. DR RODRÍGUEZ AWARE OF PT'S HALLUCINATIONS. PT STATED HE SAW FLIES COMING INTO ROOM THROUGH WINDOW. DR STATES TRANSFER TO PCU OK AND ASKED FOR PHYSICAL THERAPY CONSULT DUE TO NEEDING 2 ASSIST TO GET INTO CHAIR.
--- NOTE | 2023-01-18 11:47 | NUR ---
PHYSICAL THERAPIST AT BEDSIDE. PT REMAINS IN CHAIR AND IS AT BEDSIDE
--- NOTE | 2023-01-18 18:18 | NUR ---
SHIFT SUMMARY: PT HAS BEEN ON 6L T/O SHIFT AND SWITCHING TO HOME TRILOGY NEEDED FOR O2 NEEDS. WORKED WITH PHYSICAL THERAPY THIS SHIFT AND GOT UP TO CHAIR. ALSO DANGLED AT SIDE OF BED FOR DINNER. BED ALARM ON DUE TO SLIGHT CONFUSION AND HALLUCINATIONS. JUNIOR [employer]UX SYSTEMS ADMINISTRATOR AWARE OF THIS. WAS AT BEDSIDE THIS SHIFT AND HAS BEEN GIVEN UPDATE. NO ACUTE NEEDS AT THIS TIME.
[2023-01-19] VITALS (7 sets, daily range): BP systolic 104–138; BP diastolic 68–101
--- NOTE | 2023-01-19 06:20 | NUR ---
PATIENT PLEASANTLY CONFUSED, ABLE TO FOLLOW COMMANDS. IMPULSIVE AT TIMES. ST/AFIB WITH STABLE BP. 5L NC WHILE AWAKE, TRILOGY WITH 10L BLEED IN WHILE SLEEPING. PT REPORTS THAT BREATHING FEELS "MUCH BETTER".
--- NOTE | 2023-01-19 14:23 | NUR ---
Spiritual Care Visit. Pt. is soundly resting, but spouse is present at bedside and welcomes my visit. While Pt. slept, I facilitated a life review and established rapport with the spouse. Nursing staff came to mount and turn on the Pts. Trilogy bipap to address the Pts. O2 level. Pt. is awaked during this transition, so rapport is established with the Pt. as well. Pryaed with Pt. Pt. displayed evidence of being engaged and aware. Pryaed with the Pt. Pt. and spouse verbalized gratitude for the spiritual care visit.
--- NOTE | 2023-01-19 14:53 | NUR ---
While sleeping, spo2 dropped to 93% on 4 l/min n.c. delivery. Pt placed on home trilogy, with 4 l/min bleed in, which needed to be increased to 10 l/min to keep spo2 greater than 90% while sleeping. is at the bedside. Discussed with RT Jewell.
--- NOTE | 2023-01-19 16:32 | NUR ---
Metoprolol held as pt's heart rate is 67 bpm; holding parameters for metoprolol are for heart rate less than 80 bpm.
--- NOTE | 2023-01-19 16:33 | NUR ---
The pt has been agreeable, conversant, and cooperative with care today. Out of bed for all meals and also with Physical therapy session. He was agreeable to use the trilegy while napping in the recliner chair this afternoon. Blood pressure and heart rate have been stable since starting the oral cardizem this morning. Metoprolol was held per holding parameters this afternoon of heart rate less than 80 bpm. He has continued to persist in an atrial flutter all day. Oxygen requirements have varied, between 4 l/min and 10 l/min (with activity of eating, and while sleeping). states that his oxygen at home is 3-4 l/min. discussed with RT Jewell and pt will likely need overnight oximetry study to assess his O2 requirements at discharge. he states that he has been coughing up large amounts of yellow and green phlegm in the morning. Appetite has been good. Voiding using urinal and encouraged use of toilet instead of bedpan. Colace was administered this morning.
--- NOTE | 2023-01-19 20:45 | NUR ---
PT TOOK MASK OFF TO SPEAK ON PHONE AND PROCEEDED TO DESAT TO HIGH 60S AND LOW 80S. PUT THEM ON 6L WITH NASAL CANNULA PER NURSE'S INSTRUCTIONS. .
[2023-01-20] VITALS (7 sets, daily range): BP systolic 112–136; BP diastolic 65–97
[2023-01-20 05:57] LABS: Hematocrit 35.6 % (37.0-53.0); Hemoglobin 10.7 g/dL (13.5-17.5); Mean Corpuscular HGB 31.4 pg (26.0-34.0); Mean Corpuscular HGB Conc 30.1 g/dL (31.5-36.5); Mean Corpuscular Volume 104 fL (80-100); Mean Platelet Volume 10.2 fL (9.1-12.4); Platelet Count 185 K/mm3 (150-400); RDW Coefficient Variation 12.6 % (11.7-14.2); RDW Standard Deviation 48.5 fL (35.1-46.3); Red Blood Cell Count 3.41 M/mm3 (4.30-5.90); White Blood Cell Count 7.97 K/mm3 (4.00-11.30)
[2023-01-20 06:43] LABS: Bun/Creatinine Ratio 37.3 (12.0-20.0); Calcium, Blood 8.6 mg/dL (8.5-10.1); Creatinine, Blood 0.88 mg/dL (0.60-1.20); Percent Saturation 24.2 % (20.0-50.0); Potassium, Blood 4.9 mmol/L (3.5-5.5)
--- NOTE | 2023-01-20 06:55 | NUR ---
PATIENT AOX3. AFIB WITH A RATE OF 90-120. BP STABLE. 5L NC WHEN AWAKE, TRILOGY WITH 10L WHILE SLEEPING. PATIENT REPORTING BACK PAIN, MANAGED BY OXYCODONE AND TYLENOL.
--- NOTE | 2023-01-20 08:00 | NUR ---
INITIAL ASSESSMENT PATIENT ALERT AND ORIENTED X 4. PATIENT MILDLY FORGETFUL. PATIENT CAN BE IMPULSIVE. PATIENT AFEBRILE. PATIENT COMPLAINS OF CHRONIC BACK PAIN. PATIENT WEAK; SBA WITH FWW. PATIENT ON 3 L NC THIS AM TO KEEP SATS 90% AND GREATER. PATIENT ON HOME TRILOGY AT NIGHT WITH 10 L BLEED IN (PATIENT USES 3 TO 4 L BLEED IN AT HOME PER FAMILY REPORT). LUNGS DIMINISHED IN LOWER LOBES. EXPIRATORY RHONCHI NOTED IN L UPPER LOBE. R UPPER LOBE CLEAR. PATIENT STATES HE IS COUGHING UP MODERATE AMOUNT OF THICK, GREEN/ YELLOW MUCUS. PATIENT IN ST WITH BBB, HR IN THE 120S. SBP IN THE 120S. EDEMA NOTED TO BLES. ABDOMEN MODERATELY DISTENDED, SOFT, NORMOACTIVE BOWEL SOUNDS. GOOD APPETITE. LAST BM DOCUMENTED 2 DAYS AGO. PATIENT VOIDING SMALL AMOUNTS OF YELLOW URINE INTO URINAL INDEPENDENTLY. BLES DISCOLORED AND SCALING. SCATTERED BRUISES, SCABS AND PURPURA NOTED T/O BODY. PSORIASIS TO SCALP. BED LOW, CALL LIGHT IN REACH. WILL CONTINUE TO MONITOR PATIENT FREQUENTLY THROUGHOUT SHIFT.
--- NOTE | 2023-01-20 12:05 | NUR ---
PATIENT AFEBRILE. PATIENT NOW IN A. FIB, HR IN THE 1-TEENS. SBP IN THE LOW 100S. NO OTHER ACUTE CHANGES TO NOTE ON AT THIS TIME. AT BEDSIDE. WILL CONTINUE TO MONITOR.
--- NOTE | 2023-01-20 13:21 | NUR ---
Spiritual Care Visit. Pt. is sitting up and welcomes my visit. Spouse is present. Pt. is pleasant. Rapport is re-established and Pt. verbalized the likely plan to move to medical status when he leaves the ICU. Explored issues of elier and belief. Pt. displayed evidence of engagement, optimism and hope. Pt. verbalized appreciation for the entire medical team in the ICU, as well as the spiritual care visit.
--- NOTE | 2023-01-20 17:12 | NUR ---
PATIENT AFEBRILE. PATIENT IN A. FIB, HR IN THE 1-TEENS. SBP IN THE 130S. PATIENT GIVEN PRN TYLENOL FOR COMPLAINTS OF BACK PAIN. PATIENT ANXIOUS TO GO HOME. NO OTHER ACUTE CHANGES TO NOTE ON AT THIS TIME. WILL CONTINUE TO MONITOR.
--- NOTE | 2023-01-20 18:53 | NUR ---
SHIFT SUMMARY PATIENT REMAINED ALERT AND ORIENTED X 4, FORGETFUL/ IMPULSIVE AT TIMES. PATIENT HAS REMAINED AFEBRILE. PATIENT AMBULATED WELL SBA WITH FWW. PATIENT IS WEAK. PATIENT GIVEN SCHEDULED OXY AND PRN TYLENOL FOR COMPLAINTS OF CHRONIC BACK PAIN. PATIENT REMAINED ON 3 TO 4 L NC TO KEEP SATS 90% AND GREATER THIS SHIFT. PATIENT ST WITH BBB TO A. FIB WITH BBB. HR 1-TEENS TO 120S. SBP 112 TO 130S. EDEMA REMAINS TO BLES. 2 BMS THIS SHIFT. GOOD APPETITE. ADEQUATE URINE OUTPUT. NO CHANGES TO SKIN NOTED. PATIENT UP BETWEEN BED AND CHAIR MULTIPLE TIMES TODAY. COMPLETE BED BATH PERFORMED. IN MOST OF THE DAY. PATIENT HAS NO COMPLAINTS AT THIS TIME. BED LOW, CALL LIGHT IN REACH. REPORT WILL BE GIVEN TO ASSUMING INPATIENT AUDITOR NURSE SHORTLY.
--- NOTE | 2023-01-20 19:31 | NUR ---
REPORT GIVEN TO MONA READ. PATIENT TRANSFERRED TO 328
[2023-01-21 04:13] VITALS: BP 138/106
[2023-01-21 05:15] VITALS: BP 138/94
--- NOTE | 2023-01-21 05:47 | NUR ---
SHIFT SUMMARY REPORT FROM RUTH ANN - PT BROUGHT UP VIA ALEXYSRXANDER- PT ON 3L OXYGEN VIA NC- PT REPORTS PAIN CHRONIC AND REQUEST THAT OXYCODONE BE CHANGED TO Q4 WHICH IS HIS HOME DOSE- CALL TO SANDRA ZAVALA- NEW ORDERED TO CHANGE TO HOME DOSE Q4 SCHEDULED, PT REQUESTED CPAP BE APPLIED- PT TOLERATED WELL [id number] CALL FROM [employer] MONITOR- PT CONVERTED FROM AFIB TO ST RUNNING [id number] ALONG WITH 2ND DEGREE BLOCK- PT SLEEPING WITH EYES CLOSED, NO S/S DISTRESS/PAIN-
[2023-01-21 07:31] VITALS: BP 138/97
[2023-01-21] MEDS ORDERED: METO50ER PO (10:03)
[2023-01-21] MEDS ORDERED: PRED20 PO (10:04)
[2023-01-21] MEDS ORDERED: DILT120 PO (10:04)
--- NOTE | 2023-01-21 14:32 | NUR ---
Spiritual Care Visit. Pt. is in a blue wheelchair waiting for discharge when he welcomes my visit. Pt. is unsettled because of the delay in his discharge because his O2 was not ready to go. [place] the Pts. frustration, with empathy identified with his frustration, and apologized for the apparent oversight. Responded with support and encouragement. Pt. verbalized gratitude for the spiritual care visit.
--- NOTE | 2023-01-21 17:39 | NUR ---
DISCHARGE SUMMARY: PT AMBULATED SBA WITH FRONT WHEELED WALKER IN ROOM. DISCHARGED WITH HOME O2 ORDERS AND WALKER. PT AND SPOUSE EDUCATED ON MEDICATIONS AND TO RETURN TO ER IF SYMPTOMS WORSEN. PT TO FOLLOW UP WITH PCP, PULMONOLGY, AND CARDIOLOGY. PT STATED UNDERSTANDING WITH NO QUESTIONS OR CONCERNS AT TIME OF DISCHARGE. PT WHEELED OUT IN WHEELCHAIR AND DRIVEN HOME WITH SPOUSE.
== END 2023-01-21 14:27 | disposition home health service (06) | DRG 208 ==
LOC: ER 12:26 → ICUW 15:24 → MEDS 15:24 → ICUW 16:09 → MEDS 01-20 20:03 → ENPENDDIS 01-21 10:17 → MEDS 01-21 14:27
PROVIDERS: Emergency Medicine; Internal Medicine; Internal Medicine Critical Care Medicine; ADMIT Internal Medicine
PROC: 5A1945Z Respiratory Ventilation, 24-96 Consecutive Hours (ICD-10-PCS; principal; 2023-01-13)
PROC: 4A033R1 Measurement of Arterial Saturation, Peripheral, Percutaneous Approach (ICD-10-PCS; 2023-01-13)
PROC: 0BH17EZ Insertion of Endotracheal Airway into Trachea, Via Natural or Artificial Opening (ICD-10-PCS; 2023-01-13)
PROC: 5A09457 Assistance with Respiratory Ventilation, 24-96 Consecutive Hours, Continuous Positive Airway Pressure (ICD-10-PCS; 2023-01-17)
DX: J96.21 Acute and chronic respiratory failure with hypoxia (principal); J69.0 Pneumonitis due to inhalation of food and vomit; G92.8 Other toxic encephalopathy; I47.20 Ventricular tachycardia, unspecified; I48.20 Chronic atrial fibrillation, unspecified; I48.92 Unspecified atrial flutter; Z20.822 Contact with and (suspected) exposure to COVID-19; J44.9 Chronic obstructive pulmonary disease, unspecified; Z78.1 Physical restraint status; I11.0 Hypertensive heart disease with heart failure; J96.12 Chronic respiratory failure with hypercapnia; I35.0 Nonrheumatic aortic (valve) stenosis; I27.20 Pulmonary hypertension, unspecified; D64.9 Anemia, unspecified; I50.9 Heart failure, unspecified; I25.10 Atherosclerotic heart disease of native coronary artery without angina pectoris; F41.9 Anxiety disorder, unspecified; M54.9 Dorsalgia, unspecified; F17.210 Nicotine dependence, cigarettes, uncomplicated; G89.4 Chronic pain syndrome; Z87.01 Personal history of pneumonia (recurrent); Z99.81 Dependence on supplemental oxygen; Z98.890 Other specified postprocedural states; Z88.0 Allergy status to penicillin; Z91.018 Allergy to other foods; Z79.51 Long term (current) use of inhaled steroids; Z79.82 Long term (current) use of aspirin; Z79.899 Other long term (current) drug therapy
CPT/HCPCS: 0241U; 36415; 36600; 51702; 70450; 71045; 71260; 80047; 80048; 80053; 80069; 80162; 81001; 82607; 82728; 82746; 82803; 82947; 83540; 83550; 83605; 83735; 83880; 84100; 84145; 84484; 85014; 85025; 85027; 85520; 85610; 85730; 86850; 86900; 86901; 87040; 87070; 87205; 93005; 93010; 94002; 94003; 94640; 94644; 94660; 94664; 94762; 96365-59; 96366-59; 96375-59; 97110; 97116; 97162; 97530; 99291-25; A9270; C9113; J0282; J0696; J1160; J1630; J1644; J1940; J1956; J2250; J2704; J2920; J3010; J7030; J7040; J7050; J7060; J7512; Q9967